=== PATIENT | male | born 2000 | race Caucasian/White ===

== ENCOUNTER 2018-08-23 06:38 | Emergency (ER) | payer SELFPAY ==
[2018-08-23 06:43] VITALS: BP 110/62; PULSE 79; RESP 16; TEMP 36.9; O2SAT 100
--- NOTE | 2018-08-23 07:00 | ED.GENADUL_ITS ---
Discharge Plan Disposition Patient Disposition: HOME Condition: Stable Discharge Details Chief Complaint: Nausea/Vomit/Diar Clinical Impression: Vomiting, Sore throat Primary Care Provider: NONE,NONE ED Provider: Sharron Phillips Discharge Instructions Instructions: Pharyngitis (ED), Acute Nausea and Vomiting (ED), Hematemesis (ED ) Additional Instructions: Please return to the emergency department if you develop any new or worsening symptoms or if you become otherwise concerned. It is extremely important that you make an appointment to be seen by your primary care doctor within the next 1 -2 weeks in follow-up for this visit. Stand Alone Forms: Work Release Discharge Data Discharge Date/Time-TO BE ENTERED AT DEPARTURE: 08/23/18 11:14 Medical Decision Making <Fabricio Alvarez MD - Last Filed: 08/23/18 07:27> 18-year-old male presents from home with the abrupt onset this morning of nausea and vomiting. He does describe some bloody tinged emesis which is likely due to forceful retching. IV placed, labs obtained, patient given antiemetic and fluids. Patient's presentation is most consistent with a gastroenteritis. As he presented just prior to change of shift, patient will be signed out to Dr. Sharron Phillips pending reevaluation and review of his diagnostic studies. <Sharron Phillips MD - Last Filed: 08/31/18 09:25> I took over care of Duc Scott from Dr. Alvarez at time of shift change with labs, reassessment pending. Labs okay, nondiagnostic. Patient reporting to me that after vomiting his throat began to feel sore, and he currently feels like something is stuck in his throat that is making swallowing difficult. As he is telling me this he is lying supine. Handling secretions without issue. Exam the oropharynx is normal without erythema, edema. Full range of motion of neck , painless. Given sore throat with normal exam and Pt feeling quite anxious that something is stuck, plan for soft tissue neck. Doubt epiglottitis, abscess, FB. Exam/hx not c/w impending airway compromise. Neck x-ray okay. Patient reports that he is feeling better at this time with no further FB sensation, reports sensation went away gradually on its own. Plan for p.o. challenge. Patient has not vomited since I took over care. Suspect symptoms secondary to gastritis with forceful vomiting. Lengthy discussion with patient regarding return to emergency department precautions and importance of outpatient follow-up with his PCP. Rx zofran. Patient is placed on care management list to establish PCP. He is amenable to the plan. Imaging Data Radiologic Study: Attestation: I personally reviewed and interpreted this imaging study as follows: Radiologist's impression: NECK: Two views. No priors. The airway appears grossly unremarkable. No prevertebral soft tissue swelling is seen. The epiglottis has a normal appearance. No radiopaque foreign bodies are seen in the airway. The cervical spine appears grossly unremarkable. No radiopaque foreign bodies are seen in the soft tissues. IMPRESSION: Negative examination. Lab Data Lab results reviewed: Yes I reviewed the patient's lab results. 08/23/18 08:20 Pharynx Streptococcus Screen ([facility]) - Pending Laboratory Tests Range/Units 08/23/18 08/23/18 07:00 07:00 WBC (4.4-10.8) k/cumm 7.93 RBC (4.50-6.00) m/cumm 5.21 Hgb (13.5-17.5) g/dL 16.0 Hct (40.0-50.0) % 43.9 MCV (80-95) fL 84.3 MCH (27.0-33.0) pg 30.7 MCHC (32.0-36.0) g/dL 36.4 H RDW (11.8-14.1) % 12.7 Plt Count (130-400) x1000/uL 275 MPV (8.0-11.0) fL 10.6 Immature Gran % 0.1 Neutrophils % 73.8 Lymphocytes % 16.6 Monocytes % 7.4 Eosinophils % 1.8 Basophils % 0.3 Absolute Neutrophils (1.2-6.7) k/cumm 5.85 Absolute Lymphocytes (1.2-3.4) k/cumm 1.32 Absolute Monocytes (0.11-0.7) k/cumm 0.59 Absolute Eosinophils (0.0-0.7) k/cumm 0.14 Absolute Basophils (0.0-0.2) k/cumm 0.02 Sodium (136-145) mmol/L 140 Potassium (3.5-5.1) mmol/L 3.6 Chloride (98-107) mmol/L 102 Carbon Dioxide (21.0-32.0) mmol/L 29.2 Anion Gap (3-11) mmol/L 8.8 BUN (7-18) mg/dL 11 Creatinine (0.70-1.30) mg/dL 0.86 Estimated GFR/1.73 m2 (mL/min/1.73m2) >= 60.00 Glucose (70-100) mg/dL 107 H Calcium (8.5-10.1) mg/dL 8.8 Total Bilirubin (0.2-1.0) mg/dL 0.4 AST (15-37) U/L 25 ALT (12-78) U/L 29 Alkaline Phosphatase (46-116) U/L 77 Total Protein (6.4-8.2) g/dL 7.4 Albumin (3.4-5.0) g/dL 4.4 HPI <Fabricio Alvarez MD - Last Filed: 08/23/18 07:27> General Mode of arrival: ambulatory . Date/Time Provider Initiated Documentation: 08/23/18 06:42 . Limitations to Documentation: no limitations . Information obtained by: patient . History of Present Illness 18 year old M presents to the emergency department with the chief complaint of Nausea and vomiting, described as moderate, and is localized to the abdomen. Patient reports no radiation. Patient started experiencing this hour(s) and it has been intermittent. No relieving factors improve symptom(s ), No exacerbating factors reported . HPI Narrative: 18-year-old male states that he awoke early this morning with nausea and had a few episodes of nonbilious emesis that progressed to some slightly blood-tinged emesis. He does not have any known sick contacts or suspicious food ingestions. He states he has not had a fever. He does not have any abdominal pain. Related Data Allergies Allergy/AdvReac Type Severity Reaction Status Date / Time amoxicillin [Amoxicillin] Allergy Mild RASH Unverified 08/23/18 06:49 Penicillins Allergy Unverified 08/23/18 06:49 General Stated Complaint: Nausea/Vomit/Diar ISABELLA: 3 Review of Systems <Fabricio Alvarez MD - Last Filed: 08/23/18 07:27> Review of Systems 8 systems reviewed and otherwise neg Exam <Fabricio Alvarez MD - Last Filed: 08/23/18 07:27> Narrative Exam Narrative: 6 systems reviewed and otherwise negative Course <Fabricio Alvarez MD - Last Filed: 08/23/18 07:27> Vital Signs Temperature 36.9 C 08/23/18 06:43 Pulse 79 08/23/18 06:43 Respiratory Rate 16 08/23/18 06:43 Blood Pressure 110/62 08/23/18 06:43 Pulse Oximetry 100 08/23/18 06:43 Temperature 36.9 C 08/23/18 06:43 Temperature Source Temporal Artery Scan 08/23/18 06:43 Pulse 79 08/23/18 06:43 Respiratory Rate 16 08/23/18 06:43 Respiratory Effort Non-Labored 08/23/18 06:48 Blood Pressure 110/62 08/23/18 06:43 Blood Pressure Position Sitting 08/23/18 06:43 Pulse Oximetry 100 08/23/18 06:43 Oxygen Delivery Method Room Air 08/23/18 06:43 Oxygen Flow Rate 0 08/23/18 06:43 Pain Level 4 08/23/18 06:43
[2018-08-23] MEDS: Lactated Ringers 1,000 ML 1000 ML IV ×2 (07:07→07:36)
[2018-08-23] MEDS: Ondansetron 4 MG/2 ML VIAL IVP (07:07)
[2018-08-23 07:40] VITALS: BP 114/65; PULSE 66; RESP 15; O2SAT 97
[2018-08-23 07:55] LABS: Abs Immature Grans 0.01 k/cumm (0.0-0.09); Absolute Basophil Count 0.02 k/cumm (0.0-0.2); Absolute Eosinophil Count 0.14 k/cumm (0.0-0.7); Absolute Lymphocyte Count 1.32 k/cumm (1.2-3.4); Absolute Monocyte Count 0.59 k/cumm (0.11-0.7); Absolute Neutrophil Count 5.85 k/cumm (1.2-6.7); Basophils % 0.3; Eosinophils % 1.8; HCT 43.9 % (40.0-50.0); Immature Grans % 0.1; Lymphocytes % 16.6; Mean Corp. HGB Concentration 36.4 g/dL (32.0-36.0); Mean Corpuscular Hemoglobin 30.7 pg (27.0-33.0); Mean Corpuscular Volume 84.3 fL (80-95); Mean Platelet Volume 10.6 fL (8.0-11.0); Monocytes % 7.4; Neutrophils % 73.8; Platelet Count 275 x1000/uL (130-400); RBC 5.21 m/cumm (4.50-6.00); RBC Distribution Width 12.7 % (11.8-14.1); White Blood Cell Count 7.93 k/cumm (4.4-10.8)
[2018-08-23 08:07] LABS: ALT 29 U/L (12-78); AST 25 U/L (15-37); Albumin 4.4 g/dL (3.4-5.0); Alkaline Phosphatase 77 U/L (46-116); Anion Gap 8.8 mmol/L (3-11); BUN 11 mg/dL (7-18); Bilirubin, Total 0.4 mg/dL (0.2-1.0); CO2 29.2 mmol/L (21.0-32.0); CREATININE 0.86 mg/dL (0.70-1.30); Calcium 8.8 mg/dL (8.5-10.1); Chloride 102 mmol/L (98-107); Glucose 107 mg/dL (70-100); Potassium 3.6 mmol/L (3.5-5.1); Sodium 140 mmol/L (136-145); Total Protein 7.4 g/dL (6.4-8.2)
--- NOTE | 2018-08-23 08:35 | DI.RAD_ITS ---
SYMPTOMS/DIAGNOSIS: SORE THROAT, FEELS SOMETHING STUCK IN THROAT NECK: Two views. No priors. The airway appears grossly unremarkable. No prevertebral soft tissue swelling is seen. The epiglottis has a normal appearance. No radiopaque foreign bodies are seen in the airway. The cervical spine appears grossly unremarkable. No radiopaque foreign bodies are seen in the soft tissues. IMPRESSION: Negative examination.
[2018-08-23 08:49] VITALS: BP 106/53; PULSE 61; RESP 16; TEMP 37; O2SAT 99
[2018-08-23 10:04] VITALS: BP 104/47; PULSE 61; RESP 15; TEMP 37; O2SAT 98
[2018-08-23 10:55] VITALS: BP 104/47; PULSE 61; RESP 15; TEMP 37; O2SAT 98
--- NOTE | 2018-08-24 12:26 | PDOC.ERCMPRO ---
Care Management Progress Note 08/24-Dr. Denny Phillips requested PCP (Duc used to see [facility], [facility] adult provider, Dr. 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 Referral faxed to [facility].
--- NOTE | 2018-08-24 12:28 | CMPROGNOTE_ITS ---
Care Management Progress Note 08/24-Dr. Denny Phillips requested PCP (Duc used to see [facility], 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 Referral faxed to [facility].
== END 2018-08-23 11:14 | disposition home or self-care (01) ==
PROVIDERS: Emergency Medicine; Emergency Provider Student in an Organized Health Care Education/Training Program
DX: R11.2 Nausea with vomiting, unspecified (principal); J02.9 Acute pharyngitis, unspecified; R09.89 Other specified symptoms and signs involving the circulatory and respiratory systems
CPT/HCPCS: 36415; 80053; 87880; 96361; 96365; 96375; 99284; 70360; 85025; 87081; 99281; J2405

== ENCOUNTER 2018-09-20 05:05 | Emergency (ER) | payer SELFPAY ==
[2018-09-20 05:12] VITALS: BP 144/89; PULSE 82; RESP 20; TEMP 36.7; O2SAT 98
--- NOTE | 2018-09-20 05:14 | W.ED.GENAD ---
Discharge Plan Disposition Patient Disposition: HOME Condition: Stable Discharge Details Chief Complaint: Nk/Back Pain Clinical Impression: Cervical strain Primary Care Provider: None,None ED Provider: Gregory Hernandez Home Meds and New Rx's Prescriptions: New cyclobenzaprine 10 mg tablet 10 mg PO TID PRN (Reason: muscle spasm) Qty: 30 RF: 0 Discharge Instructions Instructions: Cervical Strain (ED) Additional Instructions: you can take 1000mg tylenol and 600mg ibuprofen every 6 hours for pain as needed for pain do not drink alcohol or drive if you take the cyclobenzaprine if you have fevers, difficulty breathing or persistent vomit return to the emergency department Medical Decision Making 18 yo male who denies chronic medical problems comes in with left sided neck pain for a month. No fevers, vomit, or chest pain/pressure. HE has pain over the left lateral neck diffusely with no midline stepoffs. He does state he fell landing hitting the back of his head without loc about a month ago and is not sure if this is when his pain started or if he strained it lifting at work. NO numbness or focal deficits of motor or sensation on exam and no fevers and denies ivdu so doubt sea or cauda equina and do not feel emergent mri indicated. 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 Will obtian imaging to eval for fx given his fall. ct shows possible old c 7 fx, has no pain in this area so unlikely cause of his pain. 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 Date/Time Provider Initiated Documentation: 09/20/18 05:13. Limitations to Documentation: no limitations. Information obtained by: patient. History of Present Illness 18 year old M presents to the emergency department with the chief complaint of neck pain, described as moderate, with intensity rated at 6. Quality is described as aching, and is localized to the neck. Patient reports no radiation. Patient started experiencing this week(s) (4) and it has been constant. No relieving factors improve symptom(s), No exacerbating factors reported . Patient notes no other symptoms.. Patient did receive the following treatments prior to arrival, other (tylenol) Related Data Home Medications Medication Instructions Recorded Confirmed cyclobenzaprine 10 mg PO TID PRN #30 tab 09/20/18 Previous Rx's Medication Instructions Recorded cyclobenzaprine 10 mg PO TID PRN #30 tab 09/20/18 Allergies Allergy/AdvReac Type Severity Reaction Status Date / Time amoxicillin [Amoxicillin] Allergy Mild RASH Unverified 09/20/18 05:14 Penicillins Allergy Unverified 09/20/18 05:14 General Stated Complaint: Nk/Back Pain ISABELLA: 4 Review of Systems Review of Systems All systems reviewed & are unremarkable except as noted in HPI and below Constitutional Denies chills, Denies fever(s) and Denies weakness Cardiovascular Denies chest pain and Denies dyspnea Respiratory Denies dyspnea Gastrointestinal Denies abdominal pain, Denies nausea and Denies vomiting Musculoskeletal Denies joint swelling Integumentary/Breasts Denies rash Neurologic Denies weakness PFSH Family History Mother Mental disorder Father Substance abuse Alcohol abuse Mental disorder Cerebrovascular accident Asthma Other No problems noted. Medical History ADHD (attention deficit hyperactivity disorder) Social History Smoking/Tobacco Use Status: Never Surgical History Circumcision Exam Const General: no acute distress Orientation: alert [facility] Head: normal to inspection Ears: external ears normal General nose exam: external nose normal Mouth: moist mucous membranes Eyes General: appearance normal, both eyes and all related structures Neck Neck: normal visual inspection Resp Effort & Inspection: normal respiratory effort and able to speak in complete sentences Cardio Rate: regular rate Skin General skin exam: no rashes or lesions noted Neuro General: alert and oriented x3 Extrem General: normal to inspection Psych Mental Status: mental status grossly normal Course Vital Signs Temperature 36.7 C 09/20/18 05:12 Pulse 82 09/20/18 05:12 Respiratory Rate 20 11/26/18 05:12 Blood Pressure 144/89 H 09/20/18 05:12 Pulse Oximetry 98 09/20/18 05:12 Temperature 36.7 C 09/20/18 05:12 Temperature Source Temporal Artery Scan 09/20/18 05:12 Pulse 82 09/20/18 05:12 Respiratory Rate 20 09/20/18 05:12 Respiratory Effort Non-Labored 09/20/18 05:12 Blood Pressure 144/89 H 09/20/18 05:12 Pulse Oximetry 98 09/20/18 05:12 Oxygen Delivery Method Room Air 09/20/18 05:12 Oxygen Flow Rate 0 09/20/18 05:12 Pain Level 6 09/20/18 05:12
--- NOTE | 2018-09-20 05:28 | ED.GENADUL_ITS ---
Discharge Plan Disposition Patient Disposition: HOME Condition: Stable Discharge Details Chief Complaint: Nk/Back Pain Clinical Impression: Cervical strain Primary Care Provider: None,None ED Provider: Gregory Hernandez Home Meds and New Rx's Prescriptions: New cyclobenzaprine 10 mg tablet 10 mg PO TID PRN (Reason: muscle spasm) Qty: 30 RF: 0 Discharge Instructions Instructions: Cervical Strain (ED) Additional Instructions: you can take 1000mg tylenol and 600mg ibuprofen every 6 hours for pain as needed for pain do not drink alcohol or drive if you take the cyclobenzaprine if you have fevers, difficulty breathing or persistent vomit return to the emergency department Medical Decision Making 18 yo male who denies chronic medical problems comes in with left sided neck pain for a month. No fevers, vomit, or chest pain/pressure. HE has pain over the left lateral neck diffusely with no midline stepoffs. He does state he fell landing hitting the back of his head without loc about a month ago and is not sure if this is when his pain started or if he strained it lifting at work. NO numbness or focal deficits of motor or sensation on exam and no fevers and denies ivdu so doubt sea or cauda equina and do not feel emergent mri indicated. 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 Will obtian imaging to eval for fx given his fall. ct shows possible old c 7 fx, has no pain in this area so unlikely cause of his pain. 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 Date/Time Provider Initiated Documentation: 09/20/18 05:13 . Limitations to Documentation: no limitations . Information obtained by: patient . History of Present Illness 18 year old M presents to the emergency department with the chief complaint of neck pain, described as moderate, with intensity rated at 6. Quality is described as aching, and is localized to the neck. Patient reports no radiation. Patient started experiencing this week(s) (4) and it has been constant. No relieving factors improve symptom(s), No exacerbating factors reported . Patient notes no other symptoms.. Patient did receive the following treatments prior to arrival, other (tylenol) Related Data Home Medications Medication Instructions Recorded Confirmed cyclobenzaprine 10 mg PO TID PRN #30 tab 09/20/18 Previous Rx's Medication Instructions Recorded cyclobenzaprine 10 mg PO TID PRN #30 tab 09/20/18 Allergies Allergy/AdvReac Type Severity Reaction Status Date / Time amoxicillin [Amoxicillin] Allergy Mild RASH Unverified 09/20/18 05:14 Penicillins Allergy Unverified 09/20/18 05:14 General Stated Complaint: Nk/Back Pain ISABELLA: 4 Review of Systems Review of Systems All systems reviewed & are unremarkable except as noted in HPI and below Constitutional Denies chills, Denies fever(s) and Denies weakness Cardiovascular Denies chest pain and Denies dyspnea Respiratory Denies dyspnea Gastrointestinal Denies abdominal pain, Denies nausea and Denies vomiting Musculoskeletal Denies joint swelling Integumentary/Breasts Denies rash Neurologic Denies weakness PFSH Family History Mother Mental disorder Father Substance abuse Alcohol abuse Mental disorder Cerebrovascular accident Asthma Other No problems noted. Medical History ADHD (attention deficit hyperactivity disorder) Social History Smoking/Tobacco Use Status: Never Surgical History Circumcision Exam Const General: no acute distress Orientation: alert [facility] Head: normal to inspection Ears: external ears normal General nose exam: external nose normal Mouth: moist mucous membranes Eyes General: appearance normal, both eyes and all related structures Neck Neck: normal visual inspection Resp Effort & Inspection: normal respiratory effort and able to speak in complete sentences Cardio Rate: regular rate Skin General skin exam: no rashes or lesions noted Neuro General: alert and oriented x3 Extrem General: normal to inspection Psych Mental Status: mental status grossly normal Course Vital Signs Temperature 36.7 C 09/20/18 05:12 Pulse 82 09/20/18 05:12 Respiratory Rate 20 11/26/18 05:12 Blood Pressure 144/89 H 09/20/18 05:12 Pulse Oximetry 98 09/20/18 05:12 Temperature 36.7 C 09/20/18 05:12 Temperature Source Temporal Artery Scan 09/20/18 05:12 Pulse 82 09/20/18 05:12 Respiratory Rate 20 09/20/18 05:12 Respiratory Effort Non-Labored 09/20/18 05:12 Blood Pressure 144/89 H 09/20/18 05:12 Pulse Oximetry 98 09/20/18 05:12 Oxygen Delivery Method Room Air 09/20/18 05:12 Oxygen Flow Rate 0 09/20/18 05:12 Pain Level 6 09/20/18 05:12
--- NOTE | 2018-09-20 06:01 | DI.VRAD_ITS ---
EXAM: CT Cervical Spine Without Intravenous Contrast EXAM DATE/TIME: 09/20/2018 5:23 AM CLINICAL HISTORY: 18 years old, male; Pain and injury or trauma; Fall; Late effect from previous injury; Blunt trauma; Neck pain; Injury details: Fell one month ago TECHNIQUE: Axial computed tomography images of the cervical spine without intravenous contrast. All CT scans at this facility use at least one of these dose optimization techniques: automated exposure control; mA and/or kV adjustment per patient size (includes targeted exams where dose is matched to clinical indication); or iterative reconstruction. Coronal reformatted images were created and reviewed. COMPARISON: CR XR soft tissue neck 08/23/2018 8:29 AM FINDINGS: Vertebrae: No acute fracture. Mild lordosis straightening. 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 No neural foraminal narrowing. Soft tissues: Unremarkable. Lungs: Lung apices are normal. 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 Ordering:ANULE BOLANOS MD
[2018-09-20 06:06] VITALS: BP 144/89; PULSE 82; RESP 20; TEMP 36.7; O2SAT 98
[2018-09-20] MEDS: Ibuprofen 600 MG TAB PO (06:06)
[2018-09-20] MEDS: Cyclobenzaprine 10 MG TAB PO (06:06)
--- NOTE | 2018-09-20 06:19 | DI.CT_ITS ---
SYMPTOM/DIAGNOSIS: PAIN S/P FALL A MONTH AGO CT CERVICAL SPINE: There is no evidence of fracture. The alignment appears normal. There is no disc space narrowing. No pneumothorax is seen at the lung apices. There is a small bony density seen posterior to the C-7 vertebral body which could represent an old fracture vs unfused apophysis. IMPRESSION: No acute abnormality
== END 2018-09-20 06:13 | disposition home or self-care (01) ==
LOC: ER 06:16
PROVIDERS: Emergency Provider Emergency Medicine
DX: S16.1XXA Strain of muscle, fascia and tendon at neck level, initial encounter (principal); X50.9XXA Other and unspecified overexertion or strenuous movements or postures, initial encounter
CPT/HCPCS: 99284; 72125

== ENCOUNTER 2018-10-05 19:00 | Emergency (ER) | payer SELFPAY ==
[2018-10-05 19:04] VITALS: BP 140/78; PULSE 94; RESP 18; TEMP 37.1; O2SAT 100
--- NOTE | 2018-10-05 19:16 | W.ED.GENAD ---
Discharge Plan Disposition Patient Disposition: HOME Condition: Improving Discharge Details Chief Complaint: Nk/Back Pain Clinical Impression: Cervical paraspinal muscle spasm Primary Care Provider: None,None ED Provider: Fabricio Alvarez Home Meds and New Rx's Prescriptions: New diazepam [Valium] 5 mg tablet 5 mg PO Q8H PRN (Reason: pain and spasm) Qty: 3 RF: 0 Continue ibuprofen 200 mg Tablet 400 mg PO QID PRNRF: 0 Discontinued cyclobenzaprine 10 mg tablet 10 mg PO TID PRN (Reason: muscle spasm) Qty: 30 RF: 0 Discharge Instructions Instructions: Muscle Spasm (ED), Tension Headache (ED) Additional Instructions: Home to rest. May continue warm, moist heat and massage to aid in reducing discomfort. Continue tiotropium if needed. Next dose of ibuprofen in 6 hours. May use Valium, sparingly, as needed for severe pain and spasm and also to help with sleep. We will ask care management to help arrange a primary care physician for you. Return if you develop numbness, tingling, weakness of the upper extremities or any other acute concerns. Stand Alone Forms: Work Release Medical Decision Making 18-year-old male presents with recurrent episodes of neck spasm, pain, and complaints that it progresses to migraine headaches. He states is been intermittent over one years time. Was seen in the emerge department in August he had a CT scan of the cervical spine that was unremarkable. 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 He has no motor weakness, numbness or tingling. He states that the pain radiates to the head and often provokes a migraine which she does not have denied. Is been somewhat improved with Tylenol at home. His vital signs are reassuring and his exam is consistent with acute muscular spasm. Most consistent with tension type headache. Patient given ketorolac IM as well as Valium p.o. He will be prescribed an additional 3 value to be used as needed only at home. I will prescribe him physical therapy will ask care management to help arrange an outpatient establishment of primary care HPI General Mode of arrival: ambulatory. Date/Time Provider Initiated Documentation: 10/05/18 19:04. Limitations to Documentation: no limitations. Information obtained by: patient. History of Present Illness 18 year old M presents to the emergency department with the chief complaint of Neck spasm and headaches intermittently over 1 years time, described as moderate and similar to prior episodes, Quality is described as aching, and is localized to the neck and left. Patient reports no radiation. Patient started experiencing this day(s) and it has been constant. other things that improve symptom(s), (Muscle massage) Related Data Home Medications Medication Instructions Recorded Confirmed diazepam [Valium] 5 mg PO Q8H PRN #3 tab 10/05/18 ibuprofen 400 mg PO QID PRN 10/05/18 10/05/18 Previous Rx's Medication Instructions Recorded diazepam [Valium] 5 mg PO Q8H PRN #3 tab 10/05/18 Allergies Allergy/AdvReac Type Severity Reaction Status Date / Time amoxicillin [Amoxicillin] Allergy Mild RASH Unverified 09/20/18 05:14 Penicillins Allergy Unverified 09/20/18 05:14 General Stated Complaint: Nk/Back Pain ISABELLA: 4 Review of Systems Review of Systems 6 systems reviewed and otherwise negative PFSH ADHD (attention deficit hyperactivity disorder) Family History Mother Mental disorder Father Substance abuse Alcohol abuse Mental disorder Stroke Asthma Other No problems noted. Medical History ADHD (attention deficit hyperactivity disorder) Social History Smoking/Tobacco Use Status: Never Surgical History Circumcision Social History Smoking/Tobacco Use Status: Never Exam Narrative Exam Narrative: GEN: awake, alert, oriented 3. Pleasant, well groomed, interactive. HEAD: Normocephalic, atraumatic ENT: Mucous membranes moist, oropharynx unremarkable, External ear exam unremarkable EYES: PERRL, EOMI NECK: Full ROM, no JOJO, no menigismus. Spasm and tenderness present in the paraspinous musculature left greater than right. No midline step-off, tenderness or deformity CHEST/RESP: Nontender, clear to auscultation bilateral, no wheeze/rhonchi/rales CARDIOVASCULAR: RRR, no murmur, rub robert. 2+ Rad pulse bilateral ABDOMEN: Soft, nontender, no mass. +Bowel sounds EXT: Full ROM, no edema, no rash Neuro: Grossly normal neurologic exam, conversant, interactive. Psych: Speech fluent, thoughts congruent, affect normal Course Vital Signs Temperature 37.1 C 10/05/18 19:04 Pulse 94 H 10/05/18 19:04 Respiratory Rate 18 10/05/18 19:04 Blood Pressure 140/78 10/05/18 19:04 Pulse Oximetry 100 10/05/18 19:04 Temperature 37.1 C 10/05/18 19:04 Temperature Source Skin 10/05/18 19:04 Pulse 94 H 10/05/18 19:04 Respiratory Rate 18 10/05/18 19:04 Respiratory Effort Non-Labored 10/05/18 19:06 Blood Pressure 140/78 10/05/18 19:04 Blood Pressure Position Sitting 10/05/18 19:04 Pulse Oximetry 100 10/05/18 19:04 Oxygen Delivery Method Room Air 10/05/18 19:04 Oxygen Flow Rate 0 10/05/18 19:04 Pain Level 8 10/05/18 19:04
--- NOTE | 2018-10-05 19:19 | ED.GENADUL_ITS ---
Discharge Plan Disposition Patient Disposition: HOME Condition: Improving Discharge Details Chief Complaint: Nk/Back Pain Clinical Impression: Cervical paraspinal muscle spasm Primary Care Provider: None,None ED Provider: Fabricio Alvarez Home Meds and New Rx's Prescriptions: New diazepam [Valium] 5 mg tablet 5 mg PO Q8H PRN (Reason: pain and spasm) Qty: 3 RF: 0 Continue ibuprofen 200 mg Tablet 400 mg PO QID PRNRF: 0 Discontinued cyclobenzaprine 10 mg tablet 10 mg PO TID PRN (Reason: muscle spasm) Qty: 30 RF: 0 Discharge Instructions Instructions: Muscle Spasm (ED), Tension Headache (ED) Additional Instructions: Home to rest. May continue warm, moist heat and massage to aid in reducing disc omfort. Continue tiotropium if needed. Next dose of ibuprofen in 6 hours. May use Valium, sparingly, as needed for severe pain and spasm and also to help with sleep. We will ask care management to help arrange a primary care physician for you. Return if you develop numbness, tingling, weakness of the upper extremities or any other acute concerns. Stand Alone Forms: Work Release Medical Decision Making 18-year-old male presents with recurrent episodes of neck spasm, pain, and complaints that it progresses to migraine headaches. He states is been intermittent over one years time. Was seen in the emerge department in August he had a CT scan of the cervical spine that was unremarkable. 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 He has no motor weakness, numbness or tingling. He states that the pain radiates to the head and often provokes a migraine which she does not have denied. Is been somewhat improved with Tylenol at home. His vital signs are reassuring and his exam is consistent with acute muscular spasm. Most consistent with tension type headache. Patient given ketorolac IM as well as Valium p.o. He will be prescribed an additional 3 value to be used as needed only at home. I will prescribe him physical therapy will ask care management to help arrange an outpatient establishment of primary care HPI General Mode of arrival: ambulatory . Date/Time Provider Initiated Documentation: 10/05/18 19:04 . Limitations to Documentation: no limitations . Information obtained by: patient . History of Present Illness 18 year old M presents to the emergency department with the chief complaint of Neck spasm and headaches intermittently over 1 years time, described as moderate and similar to prior episodes, Quality is described as aching, and is localized to the neck and left. Patient reports no radiation. Patient started experiencing this day(s) and it has been constant. other things that improve symptom(s), (Muscle massage) Related Data Home Medications Medication Instructions Recorded Confirmed diazepam [Valium] 5 mg PO Q8H PRN #3 tab 10/05/18 ibuprofen 400 mg PO QID PRN 10/05/18 10/05/18 Previous Rx's Medication Instructions Recorded diazepam [Valium] 5 mg PO Q8H PRN #3 tab 10/05/18 Allergies Allergy/AdvReac Type Severity Reaction Status Date / Time amoxicillin [Amoxicillin] Allergy Mild RASH Unverified 09/20/18 05:14 Penicillins Allergy Unverified 09/20/18 05:14 General Stated Complaint: Nk/Back Pain ISABELLA: 4 Review of Systems Review of Systems 6 systems reviewed and otherwise negative PFSH ADHD (attention deficit hyperactivity disorder) Family History Mother Mental disorder Father Substance abuse Alcohol abuse Mental disorder Stroke Asthma Other No problems noted. Medical History ADHD (attention deficit hyperactivity disorder) Social History Smoking/Tobacco Use Status: Never Surgical History Circumcision Social History Smoking/Tobacco Use Status: Never Exam Narrative Exam Narrative: GEN: awake, alert, oriented 3. Pleasant, well groomed, interactive. HEAD: Normocephalic, atraumatic ENT: Mucous membranes moist, oropharynx unremarkable, External ear exam unremarkable EYES: PERRL, EOMI NECK: Full ROM, no JOJO, no menigismus. Spasm and tenderness present in the paraspinous musculature left greater than right. No midline step-off, tenderness or deformity CHEST/RESP: Nontender, clear to auscultation bilateral, no wheeze/rhonchi/rales CARDIOVASCULAR: RRR, no murmur, rub robert. 2+ Rad pulse bilateral ABDOMEN: Soft, nontender, no mass. +Bowel sounds EXT: Full ROM, no edema, no rash Neuro: Grossly normal neurologic exam, conversant, interactive. Psych: Speech fluent, thoughts congruent, affect normal Course Vital Signs Temperature 37.1 C 10/05/18 19:04 Pulse 94 H 10/05/18 19:04 Respiratory Rate 18 10/05/18 19:04 Blood Pressure 140/78 10/05/18 19:04 Pulse Oximetry 100 10/05/18 19:04 Temperature 37.1 C 10/05/18 19:04 Temperature Source Skin 10/05/18 19:04 Pulse 94 H 10/05/18 19:04 Respiratory Rate 18 10/05/18 19:04 Respiratory Effort Non-Labored 10/05/18 19:06 Blood Pressure 140/78 10/05/18 19:04 Blood Pressure Position Sitting 10/05/18 19:04 Pulse Oximetry 100 10/05/18 19:04 Oxygen Delivery Method Room Air 10/05/18 19:04 Oxygen Flow Rate 0 10/05/18 19:04 Pain Level 8 10/05/18 19:04
[2018-10-05] MEDS: Ketorolac 60 MG/2 ML VIAL IM (19:21)
[2018-10-05] MEDS: Diazepam 5 MG TAB PO (19:21)
== END 2018-10-05 19:35 | disposition home or self-care (01) ==
LOC: ER 19:41
PROVIDERS: Emergency Provider Emergency Medicine
DX: M62.838 Other muscle spasm (principal); R51 Headache
CPT/HCPCS: 96372; 99284; J1885

== ENCOUNTER 2019-03-25 23:24 | Emergency (ER) | payer SELFPAY ==
[2019-03-25 23:28] VITALS: BP 129/69; PULSE 90; RESP 17; TEMP 37.2; O2SAT 99
--- NOTE | 2019-03-25 23:37 | DI.RAD_ITS ---
SYMPTOM/DIAGNOSIS: STEPPED ON NAIL RIGHT FOOT: Three views were obtained. No fracture or foreign body identified.
--- NOTE | 2019-03-25 23:42 | W.ED.GENAD ---
Discharge Plan Disposition Patient Disposition: HOME Condition: Good Discharge Details Chief Complaint: Orthopedic Clinical Impression: Puncture wound of right foot Primary Care Provider: None,None ED Provider: Allan Muhammad Meds and New Rx's Prescriptions: New levofloxacin [Levaquin] 500 mg tablet 500 mg PO DAILY Qty: 4 RF: 0 ibuprofen 600 mg tablet 600 mg PO QID PRN (Reason: pain) Qty: 20 RF: 0 Discharge Instructions Instructions: Puncture Wound (ED) Additional Instructions: Soak the foot in warm Epson salt solution a few times a day each day over the weekend. Keep the foot elevated. Take antibiotic nightly. Ibuprofen as needed for pain. Return to ED Thursday for wound check. Return sooner if any increased pain, drainage, erythema, fever Stand Alone Forms: Work Release Referrals: [facility] [Provider Group] Medical Decision Making Patient is given Toradol for pain. His tetanus is updated. Will soak his foot in Betadine and saline. We will get an x-ray. We will plan on antibiotics given that the nail went through the sole of his boot. X-rays are negative for anything acute. No fracture or foreign body. Patient will be placed on Levaquin for 5 days. Patient to return to emergency department Thursday for wound check. He does not have primary care currently. 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 We will have him do Epson salt soaks a few times a day over the weekend. Keep his foot elevated. Return sooner to ED if any increased pain, redness, drainage, fever HPI General Mode of arrival: ambulatory. Date/Time Provider Initiated Documentation: 03/25/19 23:32. Limitations to Documentation: no limitations. Information obtained by: patient. HPI Narrative: Patient presents to ED after stepping on a nail around 5 PM. Nail went through the sole of his boot into the bottom of his right foot. He has had increasing pain and swelling since then. He did soak his foot in Epsom salts. He has not taken anything for pain. He presents because of worsening pain and swelling. Related Data Home Medications Medication Instructions Recorded Confirmed ibuprofen 600 mg PO QID PRN #20 tab 03/26/19 levofloxacin [Levaquin] 500 mg PO DAILY #4 tab 03/26/19 Previous Rx's Medication Instructions Recorded ibuprofen 600 mg PO QID PRN #20 tab 03/26/19 levofloxacin [Levaquin] 500 mg PO DAILY #4 tab 03/26/19 Allergies Allergy/AdvReac Type Severity Reaction Status Date / Time amoxicillin [Amoxicillin] Allergy Mild RASH Unverified 03/25/19 23:31 Penicillins Allergy Unverified 03/25/19 23:31 General Stated Complaint: Orthopedic ISABELLA: 4 Review of Systems Constitutional Denies fever(s) and Denies weakness Musculoskeletal Denies numbness Comments: foot pain Integumentary/Breasts Reports wounds Neurologic Denies focal weakness, Denies numbness and Denies weakness [facility] Medical History ADHD (attention deficit hyperactivity disorder) Surgical History Circumcision Social History Smoking/Tobacco Use Status: Never Alcohol Intake: never Drug use: Daily Substance use type: marijuana Do you feel safe at home: Yes Do you feel safe in your relationship?: Yes Exam Narrative Exam Narrative: Patient is afebrile. Vital signs are normal. He looks well. Right foot has a puncture wound in the ball of the foot at the base of the fourth toe. He has tenderness in this area. He has pain with range of motion of the third fourth and fifth toe. There is no drainage or erythema. He is neurovascularly intact. Course Vital Signs Temperature 99.0 F 03/25/19 23:28 Pulse 90 03/25/19 23:28 Respiratory Rate 17 03/25/19 23:28 Blood Pressure 129/69 03/25/19 23:28 Pulse Oximetry 99 03/25/19 23:28 Temperature 99.0 F 03/25/19 23:28 Temperature Source Skin 03/25/19 23:28 Pulse 90 03/25/19 23:28 Respiratory Rate 17 03/25/19 23:28 Respiratory Effort Non-Labored 03/25/19 23:30 Blood Pressure 129/69 03/25/19 23:28 Blood Pressure Position Sitting 03/25/19 23:28 Pulse Oximetry 99 03/25/19 23:28 Oxygen Delivery Method Room Air 03/25/19 23:28 Oxygen Flow Rate 0 03/25/19 23:28 Pain Level 7 03/25/19 23:28
[2019-03-25] MEDS: Ketorolac 30 MG/ML VIAL IM (23:50)
[2019-03-26] MEDS: levoFLOXacin 500 MG TAB PO (00:22)
--- NOTE | 2019-03-26 00:50 | DI.VRAD_ITS ---
EXAM: XR Right Foot Complete EXAM DATE/TIME: 03/25/2019 11:39 PM CLINICAL HISTORY: 18 years old, male; Pain; Foot; Right; Patient HX: Stepped on nail TECHNIQUE: Imaging protocol: XR Right foot. Views: 3 or more views. COMPARISON: CR RIGHT ANKLE COMPLETE 07/15/2015 5:47 PM FINDINGS: Bones/joints: Typical for age. No evidence of acute fracture. Soft tissues: Unremarkable. IMPRESSION: No acute findings. Dictated and Authenticated by: Will Gaona MD. Ordering:VALARIE Lemus MD
--- NOTE | 2019-03-29 08:57 | PDOC.ERCMPRO ---
Care Management Progress Note 03/29-Dr. 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 Referral faxed to [facility] this am.
--- NOTE | 2019-03-29 08:59 | CMPROGNOTE_ITS ---
Care Management Progress Note 03/29-Dr. 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 Referral faxed to [facility] this am.
== END 2019-03-26 00:30 | disposition home or self-care (01) ==
PROVIDERS: Emergency Provider Emergency Medicine
DX: S91.331A Puncture wound without foreign body, right foot, initial encounter (principal); W45.8XXA Other foreign body or object entering through skin, initial encounter
CPT/HCPCS: 90471; 96372; 99284; 73630; J1885

== ENCOUNTER 2020-05-29 09:25 | Emergency (ER) | payer SELFPAY ==
--- NOTE | 2020-05-29 09:26 | ED.GENADUL_ITS ---
Discharge Plan Disposition Patient Disposition: HOME Condition: Good Discharge Details Chief Complaint: Sorethroat Clinical Impression: URI (upper respiratory infection) Primary Care Provider: None,None ED Provider: Laura Hassan Home Meds and New Rx's Prescriptions: Continued ibuprofen 600 mg tablet 600 mg PO QID PRN (Reason: pain) Qty: 20 RF: 0 Discharge Instructions Instructions: Upper Respiratory Infection (ED) Additional Instructions: Encourage water intake. Tylenol and ibuprofen as needed for discomfort. You need to quarantine until results of your COVID-19 testing. We will contact you with results once these have returned. You are unable to return to work been commuting to these are back. If you develop difficulty breathing, shortness of breath, inability stay hydrated or other new/worsening symptom please seek care urgently once again. Stand Alone Forms: PENDING COVID-19 TESTING, Work Release Discharge Data Discharge Date/Time-TO BE ENTERED AT DEPARTURE: 05/29/20 09:54 Medical Decision Making <Gregory Hernandez MD - Last Filed: 05/29/20 09:51> I had a [id number] encounter with the patient. I evaluated the patient. I discussed case with DEVELOPMENT SYSTEM EFFICIENCY MANAGER/PA and I reviewed DEVELOPMENT SYSTEM EFFICIENCY MANAGER/PA note and agree with note as documented. <YAN Gong - Last Filed: 05/30/20 12:14> Patient is a pleasant 19 year old male presenting today with c/c of scratchy throat, body aches and cough that started at 0300. Reports he vomited last night x 1 after a chip caught in his throat last night which triggered his gag reflex. He denies SOB, CP, furhter abdominal upset. He states that he traveled to [facility] 2 weeks ago for work. Concerned for COVID-19. On exam, patient appears nontoxic. Normal HEENT exam, lungs are clear, normal cardiac exam, no nuchal rigidity. Discussed treatment options with the patient. Discussed testing for COVID. Patient will need results to be able to return to work so we will test today. Advised that he needs to quarantine, discussed activities he should avoid. Patient was given strict return precautions. We will call him with results. Symptoms are most consistent with viral URI even if negative for COVID. We discussed home remedities and OTC medications to help with symptoms management. Advised he f/u with PCP in 1-2 weeks if not improving. Discussed return precuations. All of his questions and concerns. He is in agreement iwth this plan. HPI <Gregroy Hernandez MD - Last Filed: 05/29/20 09:51> General Date/Time Provider Initiated Documentation: 05/29/20 09:26 . Related Data Home Medications Medication Instructions Recorded Confirmed ibuprofen 600 mg PO QID PRN #20 tab 03/26/19 05/29/20 Previous Rx's Medication Instructions Recorded ibuprofen 600 mg PO QID PRN #20 tab 03/26/19 Allergies Allergy/AdvReac Type Severity Reaction Status Date / Time amoxicillin [Amoxicillin] Allergy Mild RASH Unverified 05/29/20 09:34 Penicillins Allergy Unverified 05/29/20 09:34 <YAN Gong - Last Filed: 05/30/20 12:14> General Mode of arrival: ambulatory . Limitations to Documentation: no limitations . Information obtained by: patient and RN notes reviewed . History of Present Illness 19 year old M presents to the emergency department with the chief complaint of scratchy throat, cough, body aches, described as mild, with intensity rated at 3. Quality is described as aching, Patient started experiencing this hour(s) (0300) and it has been constant. No relieving factors improve symptom(s), No exacerbating factors reported . Patient notes cough and nausea/vomiting (vomited x 1 last night after chip was caught in his throat); denies chest pain, diaphoresis, fever/chills, headaches, rash, shortness of breath and syncope. Patient did receive the following treatments prior to arrival, none General ISABELLA: 4 <YAN Gong - Last Filed: 05/30/20 12:14> Constitutional Constitutional: Reports as per HPI, Denies chills, Denies fever(s) and Denies headache(s) Eyes Eyes: Reports as per HPI, Denies eye discharge and Denies irritation ENT Ears, Nose, Mouth, and Throat: Reports as per HPI and Denies headache(s) Cardiovascular Cardiovascular: Reports as per HPI, Denies chest pain and Denies dyspnea Respiratory Respiratory: Reports as per HPI and Denies dyspnea Gastrointestinal Gastrointestinal: Reports as per HPI, Denies abdominal pain, Denies change in bowel habits, Denies nausea and Denies vomiting Integumentary/Breasts Skin/Breast: Reports as per HPI and Denies rash Neurologic Neurologic: Reports as per HPI and Denies headache(s) PFS <Gregory Hernandez MD - Last Filed: 05/29/20 09:51> Medical History (Updated 05/29/20 @ 09:49 by YAN Gong) ADHD (attention deficit hyperactivity disorder) Surgical History Circumcision Family History Mother Mental disorder anxiety/depression Father Substance abuse Alcohol abuse hx of Mental disorder anxiety/depression Stroke Asthma outgrown Other No problems noted. Social History Smoking/Tobacco Use Status: Never Alcohol Intake: never Drug use: Daily Substance use type: marijuana Do you feel safe at home: Yes Do you feel safe in your relationship?: Yes <YAN Gong - Last Filed: 05/30/20 12:14> Const General: cooperative, healthy appearing, comfortable, no acute distress, well developed and well groomed Nutritional Appearance: average body habitus and well nourished Orientation: alert and awake [facility] Head: normal to inspection, normocephalic and atraumatic Ears: hearing grossly normal bilaterally, external ears normal and TM's normal bilaterally General nose exam: external nose normal and nares normal Face and sinus: normal facial exam, sinuses nontender and face symmetric Mouth: oral mucosae normal, lip normal, tongue normal, oropharynx normal and moist mucous membranes Teeth and gingiva: dentition normal Throat: posterior oropharynx normal, tonsils normal and uvula midline Eyes General: appearance normal, both eyes and all related structures Neck Neck: normal visual inspection, full ROM, no lymphadenopathy and no meningeal signs Resp Effort & Inspection: normal respiratory effort, able to speak in complete sentences and no respiratory distress Auscultation: clear to auscultation bilaterally, no rales, no rhonchi and no wheezes Cardio Rate: regular rate Rhythm: regular rhythm Heart Sounds: S1 normal and S2 normal Skin General skin exam: no rashes or lesions noted Neuro General: patient alert and patient awake Cognition: normal cognition Speech: speech normal Gait: normal gait Psych Appearance: grossly normal and well kempt Mental Status: mental status grossly normal Speech and Movement: speech and movement normal
[2020-05-29 09:29] VITALS: BP 113/58; PULSE 81; RESP 16; TEMP 36.7; O2SAT 99
[2020-05-30 22:25] LABS: SARS-CoV-2 RNA Undetected (Undetected)
--- NOTE | 2020-05-31 11:40 | NUR.NOTE ---
called pt cell phone - no answer - no voicemail box Nursing Note:
--- NOTE | 2020-06-02 11:33 | NUR.NOTE ---
Nursing Note: Nursing unable to reach patient. Result for COVID was mailed to patient. Florence Thornton
== END 2020-05-29 09:54 | disposition home or self-care (01) ==
LOC: ER 09:55
PROVIDERS: Emergency Provider Physician Assistant
DX: J06.9 Acute upper respiratory infection, unspecified (principal); R11.2 Nausea with vomiting, unspecified; Z11.59 Encounter for screening for other viral diseases
CPT/HCPCS: 99282; U0003; 99283

== ENCOUNTER 2020-06-03 06:36 | Emergency (ER) | payer SELFPAY ==
[2020-06-03 06:39] VITALS: BP 138/83; PULSE 75; RESP 16; TEMP 36.5; O2SAT 98
--- NOTE | 2020-06-03 06:45 | ED.GENADUL_ITS ---
Discharge Plan Disposition Patient Disposition: HOME Condition: Stable Discharge Details Chief Complaint: Headache Clinical Impression: Sinusitis Primary Care Provider: None,None ED Provider: Gregory Hernandez Home Meds and New Rx's Prescriptions: New doxycycline hyclate 100 mg tablet 100 mg PO BID Qty: 14 RF: 0 No Action ibuprofen 600 mg tablet 600 mg PO QID PRN (Reason: pain) Qty: 20 RF: 0 Discharge Instructions Instructions: Sinusitis (ED) Additional Instructions: you can take 1000mg tylenol and 600mg ibuprofen every 6 hours for pain as needed try using a netti pot. Also take a claritin in the morning and a benadryl before bed may help if you feel more ill, have high fevers or severe worsening pain return to the emergency department follow up with your primary care provider if you aren't improving within a week Medical Decision Making 19 yo male with hx of migraines and adhd comes in with pressure in the maxillary sinuses and reported intermittent mild nose bleeds. Denies fevers, chills, state priya is in the frontal face not the head like he does when he has migraines. He denies any neck pain or stiffness, his throat pain has improved and had negative covid19 test last week. He arrives in no distress with pain to percussion over maxillary sinuses, normal orpharynx, eomi, perrl, no skin swelling or rashes. Suspect sinusitis and given the nose bleeds will tx with abx. 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 Will have him f/u with his pcp if not improving and return precautions given Differential Diagnosis Differential Diagnosis: sinusitis, uri, HPI General Mode of arrival: ambulatory . Date/Time Provider Initiated Documentation: 06/03/20 06:37 . Limitations to Documentation: no limitations . Information obtained by: patient . History of Present Illness 19 year old M presents to the emergency department with the chief complaint of sinus pressure, described as moderate, Patient started experiencing this week(s) (1) and it has been constant. No relieving factors improve symptom(s), No exacerbating factors reported . Patient did receive the following treatments prior to arrival, none Related Data Home Medications Medication Instructions Recorded Confirmed ibuprofen 600 mg PO QID PRN #20 tab 03/26/19 06/03/20 doxycycline hyclate 100 mg PO BID #14 tab 06/03/20 Previous Rx's Medication Instructions Recorded ibuprofen 600 mg PO QID PRN #20 tab 03/26/19 doxycycline hyclate 100 mg PO BID #14 tab 06/03/20 Allergies Allergy/AdvReac Type Severity Reaction Status Date / Time amoxicillin [Amoxicillin] Allergy Mild RASH Unverified 06/03/20 06:42 Penicillins Allergy Unverified 06/03/20 06:42 General Stated Complaint: Headache ISABELLA: 4 Review of Systems All systems reviewed & are unremarkable except as noted in HPI and below Constitutional Constitutional: Denies chills, Denies fever(s) and Denies weakness ENT Ears, Nose, Mouth, and Throat: Denies change in voice Cardiovascular Cardiovascular: Denies chest pain and Denies dyspnea Respiratory Respiratory: Denies cough and Denies dyspnea Gastrointestinal Gastrointestinal: Denies abdominal pain, Denies nausea and Denies vomiting Musculoskeletal Musculoskeletal: Denies joint swelling Integumentary/Breasts Skin/Breast: Denies rash Neurologic Neurologic: Denies weakness [facility] Medical History (Updated 06/03/20 @ 06:48 by Gregory Hernandez MD) ADHD (attention deficit hyperactivity disorder) Surgical History Circumcision Family History Mother Mental disorder anxiety/depression Father Substance abuse Alcohol abuse hx of Mental disorder anxiety/depression Stroke Asthma outgrown Other No problems noted. Social History Smoking/Tobacco Use Status: Never Alcohol Intake: never Drug use: Daily Substance use type: marijuana Do you feel safe at home: Yes Do you feel safe in your relationship?: Yes Exam Const General: no acute distress Orientation: alert HENMT Head: normal to inspection Ears: external ears normal General nose exam: external nose normal Mouth: moist mucous membranes Eyes General: appearance normal, both eyes and all related structures Neck Neck: normal visual inspection Resp Effort & Inspection: normal respiratory effort and able to speak in complete sentences Cardio Rate: regular rate Skin General skin exam: no rashes or lesions noted Neuro General: patient alert and patient oriented x3 Extrem General: normal to inspection Psych Mental Status: mental status grossly normal Course Vital Signs Vital signs: Vital Signs Temperature 36.5 C 06/03/20 06:39 Pulse 75 06/03/20 06:39 Respiratory Rate 16 06/03/20 06:39 Blood Pressure 138/83 06/03/20 06:39 Pulse Oximetry 98 06/03/20 06:39 Temperature 36.5 C 06/03/20 06:39 Pulse 75 06/03/20 06:39 Respiratory Rate 16 06/03/20 06:39 Blood Pressure 138/83 06/03/20 06:39 Pulse Oximetry 98 06/03/20 06:39 Pain Level 8 06/03/20 06:39
[2020-06-03] MEDS: Doxycycline Hyclate 100 MG CAP PO (06:49)
[2020-06-03] MEDS: Ibuprofen 600 MG TAB PO (06:49)
== END 2020-06-03 07:04 | disposition home or self-care (01) ==
LOC: ER 06:50
PROVIDERS: Emergency Provider Emergency Medicine
DX: J01.00 Acute maxillary sinusitis, unspecified (principal); R04.0 Epistaxis
CPT/HCPCS: 99283

== ENCOUNTER 2021-09-09 01:18 | Emergency (ER) | payer SELFPAY ==
[2021-09-09 01:24] VITALS: BP 117/77; PULSE 69; RESP 20; TEMP 36.8; O2SAT 99
[2021-09-09] MEDS: Erythromycin Ophth Oint 3.5 GM TUBE (01:27)
[2021-09-09] MEDS: Fluorescein STRIPS 100/BOX 1 MG (01:28)
[2021-09-09] MEDS: Tetracaine 0.5% 4 ML BTL (01:28)
--- NOTE | 2021-09-09 01:51 | ED.GENADUL_ITS ---
Discharge Plan Disposition Patient Disposition: HOME Condition: Good Discharge Details Clinical Impression: Welders' keratitis of both eyes Primary Care Provider: None,None ED Provider: Yasmany Ledbetter Home Meds and New Rx's Prescriptions: Continued ibuprofen 600 mg tablet 600 mg PO QID PRN (Reason: pain) Qty: 20 RF: 0 Discharge Instructions Instructions: Corneal Abrasion (ED) Additional Instructions: At this time you have Welders keratitis which is irritation and inflammation on the superficial layer of your eye. Please apply the erythromycin ointment every 3-4 hours to your eyes. Take the [place] pain pill only as needed. Please follow-up closely with the eye doctor in the next 48 to 72 hours for reassessment. If you notice any worsening of your symptoms, or any new symptoms such as vomiting, diarrhea, fever, chills, shortness of breath, chest pain, numbness, weakness, or fainting , please return immediately to the emergency department for reevaluation. Please follow up with your primary care provider as soon as possible for reassessment and reevaluation. As always, it was a pleasure participating in your medical care today. Stand Alone Forms: Work Release Referrals: [facility] [Outside] Medical Decision Making 21-year-old male with no significant past medical history presents for eye irritation. 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 He denies any history of glaucoma. He denies any grinding or foreign bodies in his eyes. He states that his eyes feel like they are burning. He woke up with symptoms like this. No other complaints at this time. No other modifying factors. Physical exam demonstrates evidence of Welders keratitis bilaterally. Eversion of the lid shows no foreign bodies. Patient does not wear contact lenses. Patient was given tetracaine and had complete resolution of his pain. He will be given [place] to go, erythromycin ointment was placed in his eyes. Patient is otherwise stable. Recommend close outpatient follow-up with Dr. Tanner. Discussed red flags which to return. Family member was at bedside. I have extensively reviewed the treatment plan and discharge instructions with the patient and their family. I have addressed all patient concerns at this time. The patient and family was made aware of what symptoms to monitor for that would warrant a return to the emergency department. Discussed the plan with the patient and family, they demonstrate verbal understanding and agreement with our assessment and plan at this time. The documentation in this chart was dictated using [employer] dictation software. Please excuse any dictation errors. HPI General Date/Time Provider Initiated Documentation: 09/09/21 01:51 . HPI Narrative: 21-year-old male with no significant past medical history presents for eye irritation. 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 He denies any history of glaucoma. He denies any grinding or foreign bodies in his eyes. He states that his eyes feel like they are burning. He woke up with symptoms like this. No other complaints at this time. No other modifying factors. Related Data Home Medications Medication Instructions Recorded Confirmed ibuprofen 600 mg PO QID PRN #20 tab 03/26/19 06/03/20 Previous Rx's Medication Instructions Recorded ibuprofen 600 mg PO QID PRN #20 tab 03/26/19 Allergies Allergy/AdvReac Type Severity Reaction Status Date / Time amoxicillin [Amoxicillin] Allergy Mild RASH Unverified 09/09/21 01:23 Penicillins Allergy Unverified 09/09/21 01:23 General Stated Complaint: EyeProblem ISABELLA: 4 Review of Systems All systems reviewed & are unremarkable except as noted in HPI and below PFSH Medical History ADHD (attention deficit hyperactivity disorder) Surgical History Circumcision Family History Mother Mental disorder anxiety/depression Father Substance abuse Alcohol abuse hx of Mental disorder anxiety/depression Stroke Asthma outgrown Other No problems noted. Social History Smoking/Tobacco Use Status: Never Smoking risk assessment performed?: Yes Alcohol Intake: never Drug use: Daily Substance use type: marijuana Do you feel safe at home: Yes Do you feel safe in your relationship?: Yes Exam Narrative Exam Narrative: 1.Const: Well-nourished, Well-developed, appearing stated age 2.Eyes: PERRL, no conjunctival injection, and symmetrical lids. Patient demonstrates no evidence of corneal abrasion on fluorescein stain. Negative Ada sign bilaterally. The patient does have mild uptake in the front of his eye in a bandlike pattern suggestive of Welders keratitis. Eyes are otherwise nontender. 3.ENT: Atraumatic external nose and ears. Moist MM. Neck: Symmetric, trachea midline, No thyromegaly. 4.CVS: +S1/S2, No murmurs or gallops. Peripheral pulses 2+ and equal in all extremities. Brisk capillary refill in all extremities. 5.RESP: Unlabored respiratory effort. Clear to auscultation bilaterally. No wheezes rales or rhonchi 6.GI: Soft, Nontender/Nondistended, No hepatosplenomegaly. No guarding or rebound. 7.MSK: Normocephalic/Atraumatic, Extremities w/o deformity or ttp No cyanosis or clubbing, Normal movement of all extremities 8.Skin: Warm, Dry. No rashes or lesions. 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 Sensation grossly intact, no focal neurologic deficits. 10.Psych: (AAO) x3. Appropriate mood and affect Course Vital Signs Vital signs: Vital Signs Temperature 36.8 C 09/09/21 01:24 Pulse 69 09/09/21 01:24 Respiratory Rate 20 09/09/21 01:24 Blood Pressure 117/77 09/09/21 01:24 Pulse Oximetry 99 09/09/21 01:24 Temperature 36.8 C 09/09/21 01:24 Temperature Source Tympanic 09/09/21 01:24 Pulse 69 09/09/21 01:24 Respiratory Rate 20 09/09/21 01:24 Respiratory Effort 09/09/21 01:26 Blood Pressure 117/77 09/09/21 01:24 Blood Pressure Position Sitting 09/09/21 01:24 Pulse Oximetry 99 09/09/21 01:24 Oxygen Delivery Method Room Air 09/09/21 01:24 Oxygen Flow Rate 0 09/09/21 01:24 Pain Level 8 09/09/21 01:24
== END 2021-09-09 02:01 | disposition home or self-care (01) ==
PROVIDERS: Emergency Provider Student in an Organized Health Care Education/Training Program
DX: H16.133 Photokeratitis, bilateral (principal); W89.8XXA Exposure to other man-made visible and ultraviolet light, initial encounter
CPT/HCPCS: 99283

== ENCOUNTER 2021-10-11 09:12 | Emergency (ER) | payer SELFPAY ==
[2021-10-11 09:19] VITALS: BP 124/59; PULSE 61; RESP 16; TEMP 36.8; O2SAT 100
[2021-10-11] MEDS: Fluorescein STRIPS 100/BOX 1 MG (09:33)
[2021-10-11] MEDS: Tetracaine 0.5% 4 ML BTL (09:33)
--- NOTE | 2021-10-11 09:47 | ED.GENADUL_ITS ---
Discharge Plan Disposition Patient Disposition: OTHER Condition: Poor Discharge Details Clinical Impression: Foreign body in eye Primary Care Provider: None,None ED Provider: Neftaly Barcenas Home Meds and New Rx's Prescriptions: Continued ibuprofen 600 mg tablet 600 mg PO QID PRN (Reason: pain) Qty: 20 RF: 0 Discharge Instructions Instructions: Eye Foreign Body (ED) Additional Instructions: Please good to [facility] for further care of your eye injury Medical Decision Making Patient presenting with chief complaint of right eye pain. Patient suspects central foreign body due to grinding metal 2 days ago. Patient denies any other injury or trauma or complaint at this time. Physical exam shows an obvious me tallic foreign body that is in the central vision above the pupil with slight placement in the 6 o'clock position. Dye uptake noted around single foreign body otherwise negative exam. EOMs intact with patient complaining of blurry vision but not full vision loss. Patient does have severe photophobia. At this time I doubt globe rupture, no signs of orbital cellulitis, no other trauma noted to head. Patient reports up-to-date tetanus. Discussed with patient removal of foreign body with moistened Q-tip and 18-gauge needle which he was agreeable to. Tetracaine was utilized to provide some anesthetic level prior to procedure. Was able to remove partial metallic foreign body but some remained along with rust ring. Given patient's significant amount of discomfort and difficulty with even visualizing the eye, I consulted [facility]. They were agreeable to see patient urgently in their office for more definitive care. Patient was agreeable to this plan of care and was discharged and informed to go directly to them. After discussion of diagnosis and plan of care patient has no further needs, questions, or concerns and states clear understanding to return to the emergency department for any worsening symptoms. HPI General Mode of arrival: ambulatory . Date/Time Provider Initiated Documentation: 10/11/21 09:25 . Limitations to Documentation: no limitations . Information obtained by: patient . History of Present Illness 21 year old M presents to the emergency department with the chief complaint of Reports R Eye foreign body due to metal grinding, described as severe, with intensity rated at 10. Quality is described as sharp, and is localized to the eyes and right. Patient reports no radiation. Patient started experiencing this day(s) (2) and it has been constant. Other factors that worsen symptoms (lights) . Patient notes no other symptoms.. Patient did receive the following treatments prior to arrival, NSAID and other (ABX Ointment) Related Data Home Medications Medication Instructions Recorded Confirmed ibuprofen 600 mg PO QID PRN #20 tab 03/26/19 10/11/21 Previous Rx's Medication Instructions Recorded ibuprofen 600 mg PO QID PRN #20 tab 03/26/19 Allergies Allergy/AdvReac Type Severity Reaction Status Date / Time amoxicillin [Amoxicillin] Allergy Mild RASH Unverified 10/11/21 09:25 Penicillins Allergy Unverified 10/11/21 09:25 General Stated Complaint: EyeProblem ISABELLA: 4 Review of Systems Constitutional Constitutional: Denies chills, Denies fever(s) and Denies headache(s) Eyes Eyes: Reports as per HPI and Denies loss of vision ENT Ears, Nose, Mouth, and Throat: Denies dental pain, Denies headache(s) and Denies neck pain Cardiovascular Cardiovascular: Denies chest pain and Denies syncope Respiratory Respiratory: Denies cough Gastrointestinal Gastrointestinal: Denies nausea Musculoskeletal Musculoskeletal: Denies neck pain Neurologic Neurologic: Denies syncope, Denies headache(s) and Denies loss of vision PFSH All Active Problems Welders' keratitis of both eyes (Acute) Foreign body in eye (Acute) Medical History ADHD (attention deficit hyperactivity disorder) Surgical History Circumcision Family History Mother Mental disorder anxiety/depression Father Substance abuse Alcohol abuse hx of Mental disorder anxiety/depression Stroke Asthma outgrown Other No problems noted. Social History Smoking/Tobacco Use Status: Never Smoking risk assessment performed?: Yes Alcohol Intake: never Drug use: Daily Substance use type: marijuana Do you feel safe at home: Yes Do you feel safe in your relationship?: Yes Exam Const General: cooperative, no acute distress and not ill appearing Orientation: alert, awake and oriented x3 HENMT Mouth: moist mucous membranes Eyes Alignment and Position: alignment normal and position normal Periorbital: periorbital findings normal Eyelids: eyelids normal Conjunctivae: conjunctival abnormality right conjunctival injection Sclera: scleral abnormality right scleral injection Cornea: corneas abnormal on the right fluorescein used (Dye uptake around FB) and foreign body metallic and with rust ring present and fluorescein used EOM: EOM intact bilaterally Resp Effort & Inspection: normal respiratory effort, able to speak in complete sentences and no respiratory distress Skin General skin exam: no rashes or lesions noted Neuro General: patient alert, patient awake, patient oriented x3, moves all extremities and no focal motor deficits Sensory Exam: no sensory deficits noted Course Vital Signs Vital signs: Vital Signs Temperature 36.8 C 10/11/21 09:19 Pulse 61 10/11/21 09:19 Respiratory Rate 16 10/11/21 09:19 Blood Pressure 124/59 L 10/11/21 09:19 Pulse Oximetry 100 10/11/21 09:19 Temperature 36.8 C 10/11/21 09:19 Temperature Source Skin 10/11/21 09:19 Pulse 61 10/11/21 09:19 Respiratory Rate 16 10/11/21 09:19 Respiratory Effort 10/11/21 09:19 Blood Pressure 124/59 L 10/11/21 09:19 Blood Pressure Position Sitting 10/11/21 09:19 Pulse Oximetry 100 10/11/21 09:19 Oxygen Delivery Method Room Air 10/11/21 09:19 Oxygen Flow Rate 0 10/11/21 09:19 Pain Level 10 10/11/21 09:19
== END 2021-10-11 09:55 | disposition other institution (70) ==
PROVIDERS: Emergency Provider Nurse Practitioner Family
DX: T15.81XA Foreign body in other and multiple parts of external eye, right eye, initial encounter (principal); X58.XXXA Exposure to other specified factors, initial encounter
CPT/HCPCS: 99283

== ENCOUNTER 2021-12-07 10:07 | Emergency (ER) | payer SELFPAY ==
[2021-12-07 10:14] VITALS: BP 130/86; PULSE 75; RESP 16; TEMP 37; O2SAT 98
--- NOTE | 2021-12-07 10:46 | W.ED.GENAD ---
Discharge Plan Disposition Patient Disposition: HOME Condition: Stable Discharge Details Clinical Impression: Dental infection Primary Care Provider: None,None ED Provider: Ra Whitney Home Meds and New Rx's Prescriptions: New clindamycin HCl 300 mg capsule 300 mg PO TID 10 Days Qty: 30 0RF Continued ibuprofen 600 mg tablet 600 mg PO QID PRN (Reason: pain) Qty: 20 0RF Discharge Instructions Instructions: Dental Abscess (ED) Additional Instructions: Clindamycin as directed. [id number] Tylenol and/or Motrin as directed for discomfort. Warm compresses every 2 hours for 20 minutes. Please watch for new or worsening symptoms and return to the ER for any concerns. I have provided you with our local dental list, please contact the dentist on this list on Thursday and make the soonest outpatient follow-up appointment. Medical Decision Making 21-year-old gentleman presents for dental infection that he states began last night. Denies recent illness or trauma. Denies fever, difficulty speaking, swallowing, breathing. No evidence of trismus. Clinically he appears well, nontoxic. He does appear to have mild right-sided facial swelling but no obvious pointing abscess. Given his allergies to penicillin, will provide him with his first dose of clindamycin now, a prescription, and a local dental list to help expedite outpatient dental care. Standard discharge and return precautions were provided. This documentation was generated using [facility] dictation system, please disregard any oddities of phrase or misspellings. Medical Records Medical records reviewed: Yes I reviewed the patient's medical records. HPI General Date/Time Provider Initiated Documentation: 12/07/21 10:26. Limitations to Documentation: no limitations. Information obtained by: patient. History of Present Illness 21 year old M presents to the emergency department with the chief complaint of Dental infection, described as moderate, Quality is described as aching, and is localized to the face and mouth. Patient reports no radiation. and it has been constant. improves with No relieving factors improve symptom(s), No exacerbating factors reported . Patient notes no other symptoms.. Patient did receive the following treatments prior to arrival, NSAID Related Data Home Medications Medication Instructions Recorded Confirmed ibuprofen 600 mg tablet 600 mg PO QID PRN #20 tab 03/26/19 12/07/21 clindamycin HCl 300 mg capsule 300 mg PO TID 10 Days #30 cap 12/07/21 Previous Rx's Medication Instructions Recorded ibuprofen 600 mg tablet 600 mg PO QID PRN #20 tab 03/26/19 clindamycin HCl 300 mg capsule 300 mg PO TID 10 Days #30 cap 12/07/21 Allergies Allergy/AdvReac Type Severity Reaction Status Date / Time amoxicillin [Amoxicillin] Allergy Mild RASH Unverified 12/07/21 10:17 Penicillins Allergy Unverified 12/07/21 10:17 General Stated Complaint: DentalOral ISABELLA: 4 Review of Systems Constitutional Constitutional: Denies fever(s) and Denies headache(s) ENT Ears, Nose, Mouth, and Throat: Denies headache(s) and Denies sore throat Respiratory Respiratory: Denies cough Integumentary/Breasts Skin/Breast: Denies rash Neurologic Neurologic: Denies headache(s) PFSH All Active Problems (Updated 12/07/21 @ 11:04 by YAN Patton) Welders' keratitis of both eyes (Acute) Foreign body in eye (Acute) Dental infection (Acute) Medical History (Updated 12/07/21 @ 11:04 by YAN Patton) ADHD (attention deficit hyperactivity disorder) Surgical History Circumcision Family History Mother Mental disorder anxiety/depression Father Substance abuse Alcohol abuse hx of Mental disorder anxiety/depression Stroke Asthma outgrown Other No problems noted. Social History Smoking/Tobacco Use Status: Current every day Tobacco Type: smokeless tobacco Smoking risk assessment performed?: Yes Alcohol Intake: never Drug use: Daily Substance use type: marijuana Do you feel safe at home: Yes Do you feel safe in your relationship?: Yes Exam Const General: cooperative, healthy appearing, comfortable and no acute distress Orientation: alert and awake [facility] Head: normal to inspection, normocephalic and atraumatic Ears: external ears normal, TM's normal bilaterally and EAC's normal General nose exam: external nose normal Face images: 1. Diffuse mild swelling. There is no warmth, erythema, fluctuance. Skin is intact. Mild induration and tenderness. No trismus. Mouth: moist mucous membranes Teeth and gingiva: fair dentition Throat: posterior oropharynx normal Eyes General: appearance normal, both eyes and all related structures Conjunctivae: conjunctivae normal Neck Neck: normal visual inspection, full ROM, no meningeal signs, trachea midline, supple, lymphadenopathy right anterior cervical and nontender Resp Effort & Inspection: normal respiratory effort and able to speak in complete sentences Auscultation: clear to auscultation bilaterally Cardio Rate: regular rate Rhythm: regular rhythm Skin General skin exam: no rashes or lesions noted Neuro General: patient alert, patient awake, moves all extremities and no focal motor deficits Cognition: normal cognition Speech: speech normal Sensory Exam: no sensory deficits noted Psych Appearance: grossly normal Mental Status: mental status grossly normal Course Vital Signs Vital signs: Vital Signs Temperature 37 C 12/07/21 10:14 Pulse 75 12/07/21 10:14 Respiratory Rate 16 12/07/21 10:14 Blood Pressure 130/86 12/07/21 10:14 Pulse Oximetry 98 12/07/21 10:14 Temperature 37 C 12/07/21 10:14 Temperature Source Temporal Artery Scan 12/07/21 10:14 Pulse 75 12/07/21 10:14 Respiratory Rate 16 12/07/21 10:14 Respiratory Effort Non-Labored 12/07/21 10:18 Blood Pressure 130/86 12/07/21 10:14 Pulse Oximetry 98 12/07/21 10:14 Oxygen Delivery Method Room Air 12/07/21 10:14 Oxygen Flow Rate 0 12/07/21 10:14
[2021-12-07] MEDS: Clindamycin 300 MG CAP PO (11:05)
--- NOTE | 2021-12-07 11:38 | NUR.NOTE ---
[facility] closed all weekend rx called to isaac samaniego in [facility] Note:
== END 2021-12-07 11:11 | disposition home or self-care (01) ==
PROVIDERS: Emergency Provider Physician Assistant
DX: K04.7 Periapical abscess without sinus (principal)
CPT/HCPCS: 99283

== ENCOUNTER 2022-03-09 21:45 | Emergency (ER) | payer SELFPAY ==
[2022-03-09 22:23] VITALS: BP 122/76; PULSE 83; RESP 18; TEMP 36; O2SAT 99
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
== END 2022-03-09 23:06 | disposition home or self-care (01) ==
PROVIDERS: Emergency Provider Student in an Organized Health Care Education/Training Program
DX: S81.812A Laceration without foreign body, left lower leg, initial encounter (principal); V86.56XA Driver of dirt bike or motor/cross bike injured in nontraffic accident, initial encounter
CPT/HCPCS: 12002

== ENCOUNTER 2022-03-13 20:50 | Emergency (ER) | payer SELFPAY ==
[2022-03-13 20:55] VITALS: BP 127/78; PULSE 72; RESP 19; TEMP 37.2; O2SAT 99
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
[2022-03-13] MEDS: Clindamycin 150 MG CAP, 12 CAPS/BTL 450 MG PO (21:06)
== END 2022-03-13 21:19 | disposition home or self-care (01) ==
PROVIDERS: Emergency Provider Student in an Organized Health Care Education/Training Program
DX: S81.812D Laceration without foreign body, left lower leg, subsequent encounter (principal); L03.116 Cellulitis of left lower limb; X58.XXXD Exposure to other specified factors, subsequent encounter
CPT/HCPCS: 99283

== ENCOUNTER 2022-03-29 13:20 | Emergency (ER) | payer SELFPAY ==
[2022-03-29 13:24] VITALS: BP 115/58; PULSE 79; RESP 16; TEMP 36.8; O2SAT 99
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
== END 2022-03-29 14:13 | disposition home or self-care (01) ==
PROVIDERS: Emergency Provider Physician Assistant
DX: S81.812D Laceration without foreign body, left lower leg, subsequent encounter (principal); X58.XXXD Exposure to other specified factors, subsequent encounter; Z48.02 Encounter for removal of sutures

== ENCOUNTER 2023-01-06 13:19 | Emergency (ER) | payer SELFPAY ==
[2023-01-06 13:25] VITALS: BP 124/77; PULSE 78; RESP 18; TEMP 36.6; O2SAT 98
--- NOTE | 2023-01-06 13:38 | ED.GENADUL_ITS ---
Discharge Plan Disposition Patient Disposition: Home Discharge Details Clinical Impression: Pain, dental Primary Care Provider: None,None ED Provider: Pallavi Kovacs Home Meds and New Rx's Prescriptions: New clindamycin HCl 300 mg capsule 300 mg PO QID Qty: 40 0RF Continued ibuprofen 600 mg tablet 800 mg PO QID PRN (Reason: pain) Discharge Instructions Instructions: Toothache (ED) Additional Instructions: Take antibiotic as prescribed Take ibuprofen and Tylenol for pain Follow-up with the dentist listed Stay away from very hot and very cold May use some [id number] dental wax to fill the gap in your tooth which may help with your pain Return immediately if fever, chills, or should he have new or worsening c omplaints Discharge Data Discharge Date/Time-TO BE ENTERED AT DEPARTURE: 01/06/23 13:52 Medical Decision Making Patient appears well, there is no evidence of deep space infection clinically for this patient presenting with jaw pain He denies any difficulty swallowing There is no clinical evidence of Lele's angina Placed on clindamycin Dental list supplied Encouraged to call tomorrow to schedule outpatient appointment No evidence of deep space infection Return precautions reviewed and patient expressed understanding HPI General Date/Time Provider Initiated Documentation: 01/06/23 13:22 . HPI Narrative: This 22-year-old male presents with report of dental pain, right lower for the past month intermittently. He states he chipped his tooth and feels as though the pain is gradually become worse, it starts in his jaw and radiates to his facial bone. He denies any fever or chills. He denies any difficulty swallowing or shortness of breath. Denies any additional complaints at this time. Related Data Home Medications Medication Instructions Recorded Confirmed clindamycin HCl 300 mg capsule 300 mg PO QID #40 caps 01/06/23 ibuprofen 600 mg tablet 800 mg PO QID PRN pain 01/06/23 Previous Rx's Medication Instructions Recorded clindamycin HCl 300 mg capsule 300 mg PO QID #40 caps 01/06/23 Allergies Allergy/AdvReac Type Severity Reaction Status Date / Time amoxicillin [Amoxicillin] Allergy Mild RASH Unverified 01/06/23 13:28 Penicillins Allergy Unverified 01/06/23 13:28 General Stated Complaint: DentalOral ISABELLA: 3 PFSH All Active Problems (Updated 01/06/23 @ 13:42 by YAN Perez) Welders' keratitis of both eyes (Acute) Foreign body in eye (Acute) Pain, dental (Acute) Medical History (Updated 01/06/23 @ 13:42 by YAN Perez) ADHD (attention deficit hyperactivity disorder) Surgical History Circumcision Family History Mother Mental disorder anxiety/depression Father Substance abuse Alcohol abuse hx of Mental disorder anxiety/depression Stroke Asthma outgrown Other No problems noted. Social History Smoking/Tobacco Use Status: Former Tobacco Use Smoking risk assessment performed?: Yes Alcohol Intake: never Drug use: Daily Substance use type: marijuana Do you feel safe at home: Yes Do you feel safe in your relationship?: Yes Exam Const Other: This 22-year-old male is in no acute distress, fully alert and oriented, he has some mild swelling to the right mandibular region, #29 with fracture noted, no surrounding erythema or edema, no soft palate induration, no evidence of significant deep space infection, lungs clear to auscultation, rate rhythm regular, no stridor Course Vital Signs Vital signs: Vital Signs Temperature 36.6 C 01/06/23 13:25 Pulse 78 01/06/23 13:25 Respiratory Rate 18 01/06/23 13:25 Blood Pressure 124/77 01/06/23 13:25 Pulse Oximetry 98 01/06/23 13:25 Temperature 36.6 C 01/06/23 13:25 Temperature Source Tympanic 01/06/23 13:25 Pulse 78 01/06/23 13:25 Respiratory Rate 18 01/06/23 13:25 Respiratory Effort Normal, Non-Labored 01/06/23 13:29 Blood Pressure 124/77 01/06/23 13:25 Blood Pressure Position Sitting 01/06/23 13:25 Pulse Oximetry 98 01/06/23 13:25 Oxygen Delivery Method Room Air 01/06/23 13:25 Oxygen Flow Rate 0 01/06/23 13:25
[2023-01-06 13:49] VITALS: BP 124/77; PULSE 78; RESP 18; TEMP 36.6; O2SAT 98
== END 2023-01-06 13:52 | disposition home or self-care (01) ==
PROVIDERS: Emergency Provider Physician Assistant
DX: K08.89 Other specified disorders of teeth and supporting structures (principal); R68.84 Jaw pain
CPT/HCPCS: 99283

== ENCOUNTER 2024-11-11 12:23 | Emergency (ER) | payer MEDICAID, SELFPAY ==
[2024-11-11] VITALS (12 sets, daily range): BP systolic 94–131; BP diastolic 50–102; PULSE 70–101; RESP 12–23; TEMP 36.3; O2SAT 96–100
--- NOTE | 2024-11-11 12:44 | ED.GENADUL_ITS ---
Discharge Plan Disposition Patient Disposition: Home Condition: Stable Discharge Details Clinical Impression: Closed trimalleolar fracture of right ankle Primary Care Provider: Unknown,Unknown ED Provider: Yasmany Olivera Home Meds and New Rx's Prescriptions: No Action ibuprofen 600 mg tablet 800 mg PO QID PRN (Reason: pain) oxycodone 5 mg tablet 5 mg PO Q1-4H PRN Discharge Instructions Instructions: Fracture, Adult ED Additional Instructions: You were seen in the emergency department for your significant fracture/dislocation of your right ankle. This was reduced by myself with you under conscious sedation with improvement of the fracture alignment and dislocation. Please use therapeutic dosing of Tylenol (acetamenophen) & Advil (ibuprofen) in an alternating fashion as follows: Take 1000mg of Tylenol every 6 hours without missing doses- that is 4 times per day. Alf in between the Tylenol dosings, take 400-600mg of Advil also on a 6 hour schedule, that is also 4 times per day. The daily maximum dosing of Tylenol is 4000mg, and the daily maximum dosing of Advil is 2400mg. This is safe to do for weeks. Please note that some common cold medications & prescription pain medications may contain acetamenophen and you need to read OTC drug labels and factor that in to maximum daily dosings. Please use significant amounts of ice, elevate your ankle, use crutches, do not weight-bear on your right ankle. Use the provided to go pack of oxycodone sparingly for breakthrough pain only. Please follow-up by calling orthopedics on Thursday morning. Referrals: [facility] [Provider Group] Discharge Data Discharge Date/Time-TO BE ENTERED AT DEPARTURE: 11/11/24 15:58 HPI General Date/Time Provider Initiated Documentation: 11/11/24 12:43 . HPI Narrative: 24 year-old male presents to ED today by EMS with a chief complaint of R foot injury- R-side dominant, with onset just prior to arrival. Patient was moving a very heavy filing cabinet down some stairs when he dropped it on his R foot and was dragged down a couple stairs, has deformity. Quality described as severe pain, worse with movement, no radiation to complete numbness, coldness of extremity, proximal calf pain. Severity is described as 10/10. Palliating factors include nothing attempted yet. Provoking factors include nothing specific. Events leading up to the incident/Associated Symptoms: Patient denies prior surgery to affected foot. Patient not anticoagulated. Related Data Home Medications ?Medication ?Instructions ?Recorded ?Confirmed ibuprofen 600 mg tablet 800 mg PO QID PRN pain 01/06/23 11/12/24 oxycodone 5 mg tablet 5 mg PO Q1-4H PRN 11/12/24 11/12/24 Allergies Allergy/AdvReac Type Severity Reaction Status Date / Time Penicillins Allergy Severe Anaphylaxis Unverified 11/12/24 17:35 amoxicillin (Amoxicillin) Allergy Mild RASH Unverified 11/12/24 17:35 General Stated Complaint: Orthopedic ISABELLA: 4 Review of Systems All systems reviewed & are unremarkable except as noted in HPI and below Exam Narrative Exam Narrative: GENERAL APPEARANCE: Well-nourished, non-toxic, awake and alert, atraumatic, no acute distress. SKIN: Warm, pink, dry, intact, without rashes/lesions/ulcerations. HEAD: Normocephalic, atraumatic, normal hair distribution for gender/age. EYES: Normal conjunctiva, no exudates on lids/lashes. ENT: Nares patent, no circumoral cyanosis, no facial swelling NECK: Supple, trachea midline, painless cervical ROM. LUNGS/CHEST: Lungs CTA bilaterally, non-labored respirations, normal A/P diameter, symmetrical expansion, no chest wall deformity HEART (CV/PV): Regular rate and rhythm without murmur, no peripheral edema, no JVD. ABDOMEN: Soft, non-distended, no guarding. MSK: Normal ROM, no swelling/deformity to bilateral UEs or LEs, moving all extremities without weakness, no cyanosis, spine midline without tenderness, normal curvature. NEURO: Mental Status AAOx4 - alert to person, place, time, events No facial droop, no forehead involvement. Motor: No focal weakness - strength 5/5 in bilateral UEs and LEs, proximal and distal, symmetric. Sensory: sensation intact to light touch globally. Gait normal: patient ambulated without ataxia into ED room. PSYCH: euthymic, cooperative, pleasant, appropriate speech Course Vital Signs Vital signs: Vital Signs Temperature 36.3 C L 11/11/24 12:31 Pulse 86 11/11/24 12:31 Respiratory Rate 11/11/24 12:31 Blood Pressure 122/74 11/11/24 12:31 Pulse Oximetry 99 11/11/24 12:31 Temperature 36.3 C L 11/11/24 12:31 Temperature Source Oral 11/11/24 12:31 Pulse 86 11/11/24 12:31 Respiratory Rate 12 11/11/24 12:31 Blood Pressure 122/74 11/11/24 12:31 Blood Pressure Position Sitting 11/11/24 12:31 Pulse Oximetry 99 11/11/24 12:31 Oxygen Delivery Method Room Air 11/11/24 12:31 Oxygen Flow Rate 0 11/11/24 12:31 Pain Level 4 11/11/24 12:31 Procedure Joint Reduction Joint #1: Date of Procedure: 11/11/24 Time of procedure: 14:30 Provider that performed the procedure: Yasmany Olivera Standard Time Out Performed: Yes Patient Consented: Written Pre-procedure medication: Other (See Dr. Cloud's note) Side: right Joint reduction location: ankle Post-Reduction Neuro Exam: intact Post-Reduction Vascular Exam: intact Post Reduction X-Ray Obtained: Yes Post Reduction X-Ray Results: reduced Splint Applied: Yes Patient Tolerated Procedure: well Orthopedic Splinting/Casting Date of Procedure: 11/11/24 Time of procedure: 14:30 Provider that performed the procedure: Yasmany Olivera Standard Time Out Performed: Yes Patient Consented: Written Pre Procedure Medication: Other (Propofol, see Dr. Cloud's note) Side: right Lower Extremity Injury Location: ankle Lower Extremity Immobilizer: posterior splint and stirrup splint Weight bearing status: non-weight bearing as tolerated Other Orthopedic Equipment: crutches Medical Decision Making This dictation utilizes [id number]-nuin dictation software and may contain unedited grammatical errors. 24 year-old male presents to ED today by EMS with a chief complaint of R foot injury- R-side dominant, with onset just prior to arrival. Patient was moving a very heavy filing cabinet down some stairs when he dropped it on his R foot and was dragged down a couple stairs, has deformity. Quality described as severe pain, worse with movement, no radiation to complete numbness, coldness of extremity, proximal calf pain. Severity is described as 10/10. Palliating factors include nothing attempted yet. Provoking factors include nothing specific. Events leading up to the incident/Associated Symptoms: Patient denies prior surgery to affected foot. Patients' medical history: negative, otherwise healthy. Family and social history: noncontributory. Pertinent exam findings / vital signs include R foot swelling/ecchymosis/deformity with some posterior displacement/dislocation, dorsalis pedis pulse 2+, brisk capillary refill, sensation intact, no proximal calf pain, no tarsal tenderness. Differential / pathologies of concern include fracture/dislocation. Diagnostic studies of: -XR R ankle-shows bimalleolar fracture with posterior dislocation. Interventions of: -Conscious sedation performed by Dr. Wisam Cloud, please see his note, I performed a closed reduction and splinting with post-reduction XR confirming improved aligned and reduction of dislocation. ED Course/Assessment/Plan: 24-year-old male dropped a very heavy file cabinet on his right ankle was dragged down a couple stairs, has a fracture dislocation of the right ankle, initial x-ray showed bimalleolar fracture but after reduction under propofol sedation performed by Dr. Wisam Cloud the postreduction x-ray showed trimalleolar fracture with improved alignment of fracture and reduction of dislocation, I did speak with Ortho Dr. Matta, stressed no weightbearing, crutches and RICE therapy over the weekend and will follow-up with them on Thursday for surgical planning, I discussed compartment syndrome precautions with the patient and provided oxycodone to go and recommend therapeutic dosing Tylenol and ibuprofen. Findings not consistent with neurovascular compromise. Disposition of Closed trimalleolar fracture of right ankle. Patient verbalized understanding of the plan and return to ED criteria and engaged in shared decision making. Medical Records Medical records reviewed: Yes I reviewed the patient's medical records. Imaging Data Radiologic Study: Attestation: I personally reviewed and interpreted this imaging study as follows: Imaging: X-Ray Radiologist's impression: EXAM: XR ANKLE RT COMPLETE CLINICAL HISTORY: ?disloc ankle. TECHNIQUE: 2D digital imaging was performed. Three views. COMPARISON: CR RIGHT ANKLE COMPLETE from 07/15/2015 FINDINGS: BONES: Oblique fracture through lateral malleolus with extension down to the level of the ankle mortise. Significant lateral and posterior displacement. Transverse fracture through the medial malleolus which also show significant displacement. JOINTS: The talus is dislocated posteriorly and laterally with respect to the distal tibia. SOFT TISSUE: Swelling and joint effusion IMPRESSION: Bimalleolar fracture with posterolateral dislocation of the talus. Radiologic Study #2: Attestation: I personally reviewed and interpreted this imaging study as follows: Imaging: X-Ray Radiologist's impression: EXAM: XR ANKLE RT COMPLETE CLINICAL HISTORY: post-reduction. TECHNIQUE: 2D digital imaging was performed. Three views. COMPARISON: CR XR ANKLE RT COMPLETE from 11/11/2024 FINDINGS: A splint is now in place. There has been improved alignment in the bimalleolar fracture. The previously noted dislocation has been reduced. IMPRESSION: Improved fracture alignment. Quality:SDOH Health Related Social Needs: 2 No Data to Display PFSH All Active Problems (Updated 11/12/24 @ 22:33 by Vidhya Cota MD) Closed trimalleolar fracture of right ankle (Acute) Foreign body in eye (Acute) Welders' keratitis of both eyes (Acute) Medical History (Updated 11/12/24 @ 22:33 by Vidhya Cota MD) ADHD (attention deficit hyperactivity disorder) Surgical History Circumcision Family History Mother Mental disorder anxiety/depression Father Substance abuse Alcohol abuse hx of Mental disorder anxiety/depression Stroke Asthma outgrown Other No problems noted. Social History Smoking/Tobacco Use Status: Former Tobacco Use Smoking risk assessment performed?: Yes Alcohol Intake: never Drug use: Daily Substance use type: marijuana Housing: house Do you feel safe at home: Yes Do you feel safe in your relationship?: Yes
--- NOTE | 2024-11-11 13:04 | DI.RAD_ITS ---
Exam(s) XR ANKLE RT COMPLETE EXAM: XR ANKLE RT COMPLETE CLINICAL HISTORY: ?disloc ankle. TECHNIQUE: 2D digital imaging was performed. Three views. COMPARISON: CR RIGHT ANKLE COMPLETE from 07/15/2015 FINDINGS: BONES: Oblique fracture through lateral malleolus with extension down to the level of the ankle morti se. Significant lateral and posterior displacement. Transverse fracture through the medial malleolu s which also show significant displacement. JOINTS: The talus is dislocated posteriorly and laterally with respect to the distal tibia. SOFT TISSUE: Swelling and joint effusion IMPRESSION: Bimalleolar fracture with posterolateral dislocation of the talus. DATA REPOSITORY: RADIATION DOSE DELIVERED:
[2024-11-11] MEDS: ACETAMINOPHEN 1,000 MG/100 ML BAG 400 MG IVPB (13:45)
[2024-11-11] MEDS: Ketorolac 15 MG/ML VIAL IVP (13:45)
[2024-11-11] MEDS: fentaNYL 100 MCG/2 ML VIAL 50 MCG IVP (14:18)
--- NOTE | 2024-11-11 14:50 | DI.RAD_ITS ---
Exam(s) XR ANKLE RT COMPLETE EXAM: XR ANKLE RT COMPLETE CLINICAL HISTORY: post-reduction. TECHNIQUE: 2D digital imaging was performed. Three views. COMPARISON: CR XR ANKLE RT COMPLETE from 11/11/2024 FINDINGS: A splint is now in place. There has been improved alignment in the bimalleolar fracture. The previo usly noted dislocation has been reduced. IMPRESSION: Improved fracture alignment. DATA REPOSITORY: RADIATION DOSE DELIVERED:
[2024-11-11] MEDS: Propofol 200 MG/20 ML VIAL 70 MG IVP (14:58)
--- NOTE | 2024-11-11 15:32 | RESPIRATORY ---
11/11/24 Assisted with conscious sedation; Ambu-bag, suction, oral/nasal airways at bedside; ETCO2 on pt; pt placed on 15L oxymask for preoxygenation. Pt did well during procedure, did require jaw thrust for a short 30-60sec period. Pt awoke after procedure, pt talking and awake before this RT left the room.
[2024-11-11] MEDS: oxyCODONE 5 MG TAB 20 MG PO (16:56)
--- NOTE | 2024-11-12 08:43 | NUR.NOTE ---
Access chart to get the diagnosis information for the Surgi Care requisition. Nursing Note:
== END 2024-11-11 15:58 | disposition home or self-care (01) ==
PROVIDERS: Emergency Provider Physician Assistant
DX: S82.851A Displaced trimalleolar fracture of right lower leg, initial encounter for closed fracture (principal); W20.8XXA Other cause of strike by thrown, projected or falling object, initial encounter
CPT/HCPCS: 27818; 96365; 96366; 96375; 99284; 73610; J0131; J1885; J2704; J3010

== ENCOUNTER 2024-11-12 17:30 | Emergency (ER) | payer MEDICAID, SELFPAY ==
[2024-11-12 17:33] VITALS: BP 132/77; PULSE 92; RESP 16; TEMP 36.6; O2SAT 98
[2024-11-12] MEDS: Ibuprofen 600 MG TAB PO (18:06)
[2024-11-12] MEDS: MORPHine IR 15 MG TAB PO (18:08)
--- NOTE | 2024-11-12 18:30 | DI.RAD_ITS ---
Exam(s) XR ANKLE RT COMPLETE EXAM: XR ANKLE RT COMPLETE INDICATION: Repeat for bimalleolar fx. COMPARISON: CR XR ANKLE RT COMPLETE from 11/11/2024 TECHNIQUE: 2D digital imaging was performed. Two views. FINDINGS: Overlying cast material somewhat obscures the bony detail. There has been no significant change in t he alignment of the medial and lateral malleolar fractures. A nondisplaced fracture is also visible through the posterior malleolus. DATA REPOSITORY: RADIATION DOSE DELIVERED:
--- NOTE | 2024-11-12 20:00 | DI.RAD_ITS ---
Exam(s) XR ANKLE RT 2V EXAM: XR ANKLE RT 2V CLINICAL HISTORY: Mini C-arm reduction. TECHNIQUE: 2D and realtime digital imaging was performed. COMPARISON: CR,XR XR ANKLE RT COMPLETE from 11/12/2024 FINDINGS: Hard copy images show 6 difficult end improvement in the alignment of the previous noted fractures o f the medial and lateral malleoli. Ankle mortise is no longer widened. The posterior malleolar frac ture is not visible due to lack of image detail. Please see procedure note for details. Fluoro time: 6seconds RADIATION DOSE DELIVERED: austin Benedict=0.48 mGy
--- NOTE | 2024-11-12 20:37 | DI.VRAD_ITS ---
PROCEDURE INFORMATION: Exam: XR Right Ankle Exam date and time: 11/12/2024 6:51 PM Age: 24 years old Clinical indication: Other: Re peat for bimalleolar FX TECHNIQUE: Imaging protocol: Radiologic exam of the right ankle. Views: 3 or more views. COMPARISON: CR XR ANKLE RT COMPLETE 11/11/2024 3:13 PM FINDINGS: Bones/joints: Again seen, distal fibula fracture and medial malleolus fracture. Small fracture through the posterior malleolus again seen. There is asymmetry to the ankle mortise with a proximally 4 mm of lateral displacement of the tibia from the talus. Overlying cast noted. Soft tissues: Diffuse soft tissue edema. IMPRESSION: 1. Again seen, distal fibula fracture and medial malleolus fracture. Small fracture through the posterior malleolus again seen. There is asymmetry to the ankle mortise with a proximally 4 mm of lateral displacement of the tibia from the talus. Overlying cast noted. 2. Diffuse soft tissue edema. Dictated and Authenticated by: Kaci Benson MD. Ordering:ANGLE Almanza MD
--- NOTE | 2024-11-12 21:16 | ED.GENADUL_ITS ---
Discharge Plan Disposition Patient Disposition: Home Condition: Stable Discharge Details Clinical Impression: Closed trimalleolar fracture of right ankle Primary Care Provider: None,None ED Provider: Vidhya Cota Home Meds and New Rx's Prescriptions: No Action ibuprofen 600 mg tablet 800 mg PO QID PRN (Reason: pain) oxycodone 5 mg tablet 5 mg PO Q1-4H PRN Discharge Instructions Instructions: Fracture, Adult ED Additional Instructions: You were seen in the emergency department today for evaluation of numbness and poor circulation due to your splint. The splint was loosened, and we repeated an x-ray which does show worsening of the alignment. You were placed in a new splint with some improved alignment on your repeat x-ray, and need to keep your follow-up appointment with orthopedics for definitive management of this fracture. I have provided you with a short course of oral morphine to be used for breakthrough pain, you should also continue to use Tylenol and ibuprofen as well as ice and elevation for swelling. Thank you for allowing us to be part of your care. HPI General Mode of arrival: ambulatory . Date/Time Provider Initiated Documentation: 11/12/24 17:51 . Limitations to Documentation: no limitations . Information obtained by: patient, family and old records reviewed . HPI Narrative: HPI: This is a 24-year-old male patient who sustained a bimalleolar fracture yesterday, reduced in the emergency department, who is presenting for evaluation of worsening pain and numbness/tingling of the foot. He was instructed return with any evidence of compression or sensory changes, states that he noticed that his toes were very cold and turning white, and presented for care. He states that he has noted a grinding sensation of the bones in the ankle, has been using his home multimodal pain management regimen with modest success. He has not sustained any additional injury. Exam: Gen: Awake and alert, in no apparent distress HEENT: Non-icteric sclera Neck: Supple Lungs: No apparent respiratory distress, normal respiratory effort. CV: Appears well perfused Abdomen: Non-distended MSK: Moves 4 extremities without apparent limitation in ROM, with the exception of the right lower extremity. He is in a Ortho-Glass splint, with delayed capillary refill on initial examination. Preserved motion and sensation. Skin: Visualized skin without rashes, cyanosis. Neuro: Normal Gait, no obvious focal deficits or facial asymmetry. Speaks in full, clear sentences. Psych: Appropriate for situation. MDM: This is a 24-year-old male patient presenting for evaluation of increasing pain in the setting of a known bimalleolar fracture. Differential includes but is not limited to instability of the fracture, compression due to the tight splint. The patient had his splint removed and after that had brisk capillary refill and improvement in his symptoms, and that reassures me against compartment syndrome, neurovascular derangement. We obtained repeat x-ray imaging that does show some worsened alignment, and I consulted [facility] orthopedics, who is concerned that the splint allows for too much plantarflexion and recommended replacement of the splint. I do not see indication at this time for advanced imaging, but did provide the patient with medications for pain management. ED Course: Procedural sedation due to painful procedure was performed, the ankle was manipulated into more anatomic alignment with C arm demonstrating improvement in anatomy at bedside. A dorsal slab and stirrup splint was placed and the foot was ensured to be in a neutral position without excessive plantarflexion. Postreduction x-rays obtained, showing improved alignment and near anatomic positioning, though certainly I remain concerned about the instability of this fracture. Per [facility] orthopedics, this does not require emergent surgical intervention, and the patient was hemodynamically appropriate and neuro intact after this procedure. He is desiring to attempt to wait until he can be seen by orthopedics here for evaluation, and I did provide him with a short course of oral morphine for breakthrough pain in the home environment. At this time, the patient has had a full medical evaluation and is safe for discharge to home. They are hemodynamically stable, ambulatory, and tolerating PO. They are understanding of the follow-up plan and return precautions. They left our facility without incident. Vidhya Cota MD Related Data Home Medications ?Medication ?Instructions ?Recorded ?Confirmed ibuprofen 600 mg tablet 800 mg PO QID PRN pain 01/06/23 11/12/24 oxycodone 5 mg tablet 5 mg PO Q1-4H PRN 11/12/24 11/12/24 Allergies Allergy/AdvReac Type Severity Reaction Status Date / Time Penicillins Allergy Severe Anaphylaxis Unverified 11/12/24 17:35 amoxicillin (Amoxicillin) Allergy Mild RASH Unverified 11/12/24 17:35 General Stated Complaint: Orthopedic ISABELLA: 4 Course Vital Signs Vital signs: Vital Signs Temperature 36.6 C 11/12/24 17:33 Pulse 92 H 11/12/24 17:33 Respiratory Rate 16 11/12/24 17:33 Blood Pressure 132/77 11/12/24 17:33 Pulse Oximetry 98 11/12/24 17:33 Temperature 36.6 C 11/12/24 17:33 Pulse 92 H 11/12/24 17:33 Respiratory Rate 16 11/12/24 17:33 Blood Pressure 132/77 11/12/24 17:33 Pulse Oximetry 98 11/12/24 17:33 Pain Level 6 11/12/24 18:06 Procedure Fracture Reduction Fracture #1: Date of Procedure: 11/12/24 Time of procedure: 22:35 Provider that performed the procedure: Vidhya Cota Standard Time Out Performed: Yes Patient Consented: Written Ultrasound: Not used Side: right Fracture Reduction Location: tibia (and fibular, bimalleolar) Sedation administered by provider performing procedure: Yes Technique: direct manipulation and traction/counter-traction Post Reduction X-rays Demonstrate: acceptable reduction Post-Reduction Neuro Exam: intact Post-Reduction Vascular Exam: intact Splint Applied: Yes Patient Tolerated Procedure: well and no complications Procedural Sedation Date of Procedure: 11/12/24 Time of procedure: 21:40 Provider that performed the procedure: Vidhya Cota Indication: Pain control and Procedural optimization Patient Consented: Written Sedation Given: Ketamine Amount of sedation(mg): 75 Preparation: monitoring tech applied, pulse oximeter, capnometry used, supplemental O2 applied, suction/airway equipment at bedside and IV secured Time of Last PO Intake: 17:00 Medical Decision Making Quality:SDOH Health Related Social Needs: No Data to Display PFSH All Active Problems (Updated 11/12/24 @ 22:33 by Vidhya Cota MD) Closed trimalleolar fracture of right ankle (Acute) Foreign body in eye (Acute) Welders' keratitis of both eyes (Acute) Medical History (Updated 11/12/24 @ 22:33 by Vidhya Cota MD) ADHD (attention deficit hyperactivity disorder) Surgical History Circumcision Family History Mother Mental disorder anxiety/depression Father Substance abuse Alcohol abuse hx of Mental disorder anxiety/depression Stroke Asthma outgrown Other No problems noted. Social History Smoking/Tobacco Use Status: Former Tobacco Use Smoking risk assessment performed?: Yes Alcohol Intake: never Drug use: Daily Substance use type: marijuana Housing: house Do you feel safe at home: Yes Do you feel safe in your relationship?: Yes
[2024-11-12] MEDS: Ketamine 500 MG/10 ML VIAL 75 MG IVP (21:53)
--- NOTE | 2024-11-12 21:55 | RESPIRATORY ---
RT present on conscious sedation procedure with rescue breathing equipments at bedside. No complication to ventilation, pt. maintained stable vital signs on RA, including etCO2 ranging from 30-45 through out the conscious sedation procedure. MD Notified before RT left after pt. awaken.
[2024-11-12 21:58] VITALS: BP 154/96; PULSE 78; RESP 17; O2SAT 96
[2024-11-12 22:01] VITALS: BP 132/83; PULSE 75; PULSE 85; RESP 24; O2SAT 98
--- NOTE | 2024-11-12 22:13 | DI.RAD_ITS ---
Exam(s) XR ANKLE RT 2V EXAM: XR ANKLE RT 2V INDICATION: Post reduction. COMPARISON: CR XR ANKLE RT COMPLETE from 11/11/2024 CR XR ANKLE RT COMPLETE from 11/11/2024 CR XR ANKLE RT 2V from 11/12/2024 CR,XR XR ANKLE RT COMPLETE from 11/12/2024 TECHNIQUE: 2D digital imaging was performed. Two views. FINDINGS: A posterior splint is in place. There is improved alignment of the trimalleolar fracture, similar to the fluoroscopic exam. DATA REPOSITORY: RADIATION DOSE DELIVERED:
--- NOTE | 2024-11-12 22:15 | NUR.NOTE ---
Nursing Note: Report and transfer of care given to Nadira Garcia RN at this time.
--- NOTE | 2024-11-12 22:21 | DI.VRAD_ITS ---
PROCEDURE INFORMATION: Exam: XR Right Ankle Exam date and time: 11/12/2024 10:11 PM Age: 24 years old Clinical indication: Other: Post reduction TECHNIQUE: Imaging protocol: Radiologic exam of the right ankle. Views: 1 or 2 views. COMPARISON: CR XR ANKLE RT 2V 11/12/2024 9:36 PM FINDINGS: Bones/joints: Again seen is trimalleolar fracture, the fracture fragments are in near anatomical alignment after reduction. There is mild widening of the ankle mortise, however this is improved postreduction with approximately 6 mm of medial displacement of the tibia from the talus. Soft tissues: Severe soft tissue edema with overlying cast again seen. IMPRESSION: 1. Again seen is trimalleolar fracture, the fracture fragments are in near anatomical alignment after reduction. There is mild widening of the ankle mortise, however this is improved postreduction with approximately 6 mm of medial displacement of the tibia from the talus. 2. Severe soft tissue edema with overlying cast again seen. Dictated and Authenticated by: Kaci Benson MD. Ordering:ANGLE Almanza MD
[2024-11-12] MEDS: MORPHine IR 15 MG TAB, 4 TABS/BTL PO (22:49)
[2024-11-12 22:50] VITALS: BP 132/84; PULSE 67; RESP 15; TEMP 37; O2SAT 100
== END 2024-11-12 22:50 | disposition home or self-care (01) ==
PROVIDERS: Emergency Provider Emergency Medicine
DX: S82.851D Displaced trimalleolar fracture of right lower leg, subsequent encounter for closed fracture with routine healing (principal); Z87.891 Personal history of nicotine dependence; X58.XXXD Exposure to other specified factors, subsequent encounter
CPT/HCPCS: 76000; 99283; 73600; 73610

== ENCOUNTER 2024-11-15 15:30 | Outpatient (CLI) | payer MEDICAID, SELFPAY ==
--- NOTE | 2024-11-15 13:30 | DI.RAD_ITS ---
Exam(s) XR ANKLE RT COMPLETE EXAM: XR ANKLE RT COMPLETE CLINICAL HISTORY: post-reduction. TECHNIQUE: 2D digital imaging was performed. Three views. COMPARISON: CR,XR XR ANKLE RT 2V from 11/12/2024 FINDINGS: Cast material is in place. There has been further improvement in pre in the alignment of the trimall eolar fracture. The amount of ankle mortise widening is decreased. The medial malleolar fracture fr agment is in near atomic position. Posterior malleolar fracture is nondisplaced. There is slight di splacement of the lateral malleolar fracture. IMPRESSION: Improved alignment intra trimalleolar fracture. DATA REPOSITORY: RADIATION DOSE DELIVERED:
== END 2024-11-15 15:31 | disposition home or self-care (01) ==
LOC: DIORS 15:30
PROVIDERS: Visit Provider Physician Assistant
DX: S82.851D Displaced trimalleolar fracture of right lower leg, subsequent encounter for closed fracture with routine healing (principal); X58.XXXD Exposure to other specified factors, subsequent encounter
CPT/HCPCS: 73610

== ENCOUNTER 2024-11-15 15:39 | Emergency (ER) | payer MEDICAID, SELFPAY ==
[2024-11-15 15:42] VITALS: BP 137/73; PULSE 77; RESP 18; TEMP 36.4; O2SAT 99
--- NOTE | 2024-11-15 15:45 | DI.RAD_ITS ---
Exam(s) XR ANKLE RT COMPLETE EXAM: XR ANKLE RT COMPLETE CLINICAL HISTORY: Hx fx, fell today. TECHNIQUE: 2D digital imaging was performed. Three views. COMPARISON: CR XR ANKLE RT COMPLETE from 11/15/2024 FINDINGS: The posterior splint remains in place. There has been no change in the alignment of the trimalleolar fracture. No new abnormalities are identified. IMPRESSION: Stable fracture alignment. DATA REPOSITORY: RADIATION DOSE DELIVERED:
--- NOTE | 2024-11-15 16:01 | W.ED.GENAD ---
Discharge Plan Disposition Patient Disposition: Home Condition: Stable Discharge Details Clinical Impression: Fall (on) (from) other stairs and steps, initial encounter, Aftercare for cast or splint check or change Primary Care Provider: None,None ED Provider: Trina Tello Home Meds and New Rx's Prescriptions: No Action ibuprofen 600 mg tablet 800 mg PO QID PRN (Reason: pain) morphine 15 mg tablet 15 mg PO Q12H PRN oxycodone 5 mg tablet 5 mg PO Q1-4H PRN Discharge Instructions Instructions: How to care for a splint Additional Instructions: The x-rays today look good. The ankle is still well aligned. Dr. Matta was able to look at the images and does not recommend any further treatment. Please be careful not to fall again, keep it elevated above the level of your heart while sitting or laying down, Tylenol ibuprofen. Please keep your appointment on as previously discussed and scheduled. Thank you for allowing us to care for you today. Referrals: Ramsey Matta MD [ [facility] STAFF PHYSICIAN] - 2 days Discharge Data Discharge Date/Time-TO BE ENTERED AT DEPARTURE: 11/15/24 16:36 HPI General Mode of arrival: wheelchair. Date/Time Provider Initiated Documentation: 11/15/24 15:46. Limitations to Documentation: no limitations. Information obtained by: patient, RN notes reviewed and old records reviewed. HPI Narrative: 24-year-old male presents to the ER with a chief complaint of right heel and ankle pain status post a slip and fall. Patient reports that he was just seen orthopedic clinic for splinting of a trimalleolar fracture that is due for surgery in 48 hours approximately. Reports he was coming up some stairs slipped on the ice and put some weight on his heel. He reports that he just wants to make sure everything is okay. He does have some discomfort and pressure. Distal CMS is intact he is able to wiggle his toes without difficulty. Does have a past medical history of ADHD. He appears in no acute distress. Related Data Home Medications ?Medication ?Instructions ?Recorded ?Confirmed ibuprofen 600 mg tablet 800 mg PO QID PRN pain 01/06/23 11/15/24 oxycodone 5 mg tablet 5 mg PO Q1-4H PRN 11/12/24 11/15/24 morphine 15 mg immediate release 15 mg PO Q12H PRN 11/15/24 11/15/24 tablet Allergies Allergy/AdvReac Type Severity Reaction Status Date / Time Penicillins Allergy Severe Anaphylaxis Unverified 11/15/24 15:46 amoxicillin (Amoxicillin) Allergy Mild RASH Unverified 11/15/24 15:46 ketamine AdvReac Intermediate Agitation Verified 11/15/24 15:46 General Stated Complaint: Orthopedic ISABELLA: 3 Review of Systems Musculoskeletal Musculoskeletal: Reports as per HPI and Reports arthralgias Exam Extrem General: normal to inspection Right lower extremity: normal to inspection (Is in a posterior long-leg splint.) Course Vital Signs Vital signs: Vital Signs Temperature 36.4 C 11/15/24 15:42 Pulse 77 11/15/24 15:42 Respiratory Rate 18 11/15/24 15:42 Blood Pressure 137/73 11/15/24 15:42 Pulse Oximetry 99 11/15/24 15:42 Temperature 36.4 C 11/15/24 15:42 Temperature Source Temporal Artery Scan 11/15/24 15:42 Pulse 77 11/15/24 15:42 Respiratory Rate 18 11/15/24 15:42 Blood Pressure 137/73 11/15/24 15:42 Blood Pressure Position Supine 11/15/24 15:42 Pulse Oximetry 99 11/15/24 15:42 Oxygen Delivery Method Room Air 11/15/24 15:42 Oxygen Flow Rate 0 11/15/24 15:42 Medical Decision Making 24-year-old male presents to the ER with a chief complaint of right heel and ankle pain status post a slip and fall. Patient reports that he was just seen orthopedic clinic for splinting of a trimalleolar fracture that is due for surgery in 48 hours approximately. Reports he was coming up some stairs slipped on the ice and put some weight on his heel. He reports that he just wants to make sure everything is okay. He does have some discomfort and pressure. Distal CMS is intact he is able to wiggle his toes without difficulty. Does have a past medical history of ADHD. He appears in no acute distress. X-ray right ankle ordered. 162: Spoke with Dr. Matta she was able to personally review the images. He does not recommend any further intervention at this time ankle is still well reduced. Splint is still intact. Will discussed elevation and protection and to keep his appointment for . X-rays show continuous alignment of the fracture and ankle. Discussed home care with patient who verbalized understanding. This text was generated using Blabroomation system, please disregard any oddities of phrase or misspellings. Medical Records Medical records reviewed: Yes I reviewed the patient's medical records. Quality:SDOH Health Related Social Needs: No Data to Display PFSH All Active Problems (Updated 11/15/24 @ 16:28 by Trina Tello NP) Aftercare for cast or splint check or change (Acute) Fall (on) (from) other stairs and steps, initial encounter (Acute) Closed trimalleolar fracture of right ankle (Acute 11/11/24) Foreign body in eye (Acute) Welders' keratitis of both eyes (Acute) Medical History (Updated 11/15/24 @ 16:28 by Trina Tello NP) ADHD (attention deficit hyperactivity disorder) Surgical History Circumcision Family History Mother Mental disorder anxiety/depression Father Substance abuse Alcohol abuse hx of Mental disorder anxiety/depression Stroke Asthma outgrown Other No problems noted. Social History Smoking/Tobacco Use Status: Former Tobacco Use Smoking risk assessment performed?: Yes Alcohol Intake: never Drug use: Daily Substance use type: marijuana Housing: house Do you feel safe at home: Yes Do you feel safe in your relationship?: Yes
== END 2024-11-15 16:36 | disposition home or self-care (01) ==
PROVIDERS: Emergency Provider Registered Nurse Emergency
DX: M25.571 Pain in right ankle and joints of right foot (principal); Z47.89 Encounter for other orthopedic aftercare; W00.0XXA Fall on same level due to ice and snow, initial encounter; S82.851D Displaced trimalleolar fracture of right lower leg, subsequent encounter for closed fracture with routine healing
CPT/HCPCS: 99283; 73610

== ENCOUNTER 2024-11-17 06:13 | Day surgery (SDC) | payer MEDICAID, SELFPAY ==
[2024-11-17] VITALS (22 sets, daily range): BP systolic 91–136; BP diastolic 36–67; PULSE 62–78; RESP 12–22; TEMP 36.3–36.8; O2SAT 95–100; BMI 23.6
--- NOTE | 2024-11-17 06:11 | W.ANESPRE ---
General Info Date of Service Date Performed: 11/17/24 Height: 5 ft 10 in Weight: 74.843 kg Body Mass Index (BMI): 23.6 Surgical Procedure: Operation Date: 11/17/24 07:40 Proposed Procedure Side Surgeon p Ankle ORIF Right Ramsey Matta MD Meds Allergies and Home Medications Allergies Allergy/AdvReac Type Severity Reaction Status Date / Time Penicillins Allergy Severe Anaphylaxis Verified 11/16/24 10:30 amoxicillin (Amoxicillin) Allergy Mild RASH Verified 11/16/24 10:30 ketamine AdvReac Intermediate Agitation Verified 11/16/24 10:30 Home Medication ?Medication ?Instructions ?Recorded ibuprofen 600 mg tablet 800 mg PO QID PRN pain 01/06/23 oxycodone 5 mg tablet 5 mg PO Q1-4H PRN 11/12/24 morphine 15 mg immediate release 15 mg PO Q12H PRN 11/15/24 tablet acetaminophen 500 mg capsule 1,000 mg PO Q6H PRN 11/16/24 Current Visit Medications: Current Medications Generic Name Dose Route Start Last Admin Trade Name Linwoodq PRN Reason Stop Dose Admin Ringer's Solution 1,000 mls @ 30 mls/hr 11/17/24 06:00 IV 11/17/24 23:59 INFUSION RANDY Cefazolin Sodium/Dextrose 2 gm in 50 mls @ 100 mls/hr 11/17/24 06:00 Ancef Duplex IVPB 11/17/24 23:59 PREOP RANDY IV Miscellaneous Supplies 1 each 11/17/24 06:00 Iv Access IV 11/17/24 23:59 DIRECTED RANDY Sodium Chloride 0 ml 11/17/24 06:00 Normal Saline Flush 10 Ml Syr IV 11/17/24 23:59 PRN PRN Sodium Chloride 0 ml 11/17/24 06:00 Normal Saline 10 Ml Vial IJ 11/17/24 23:59 DIRECTED PRN Sterile Water 0 ml 11/17/24 06:00 Water,Injection,Sterile 10 Ml Vial IJ 11/17/24 23:59 DIRECTED PRN PFSH Active Problems Active Problems: Problem Status Onset Code Aftercare for cast or splint check or change Acute Z47.89 Fall (on) (from) other stairs and steps, initial encounter Acute W10.8XXA Closed trimalleolar fracture of right ankle Acute 11/11/24 S82.851A Foreign body in eye Acute T15.90XA Welders' keratitis of both eyes Acute H16.133 Medical History Medical History ADHD (attention deficit hyperactivity disorder) Surgical History Surgical History Circumcision Tobacco Smoking/Tobacco Use Status: Current-Occasional Tobacco Type: smokeless tobacco Alcohol Alcohol Intake: never Substance Use Substance use: Daily Substance use type: marijuana Vital Signs and Lab Results Lab Results Blood Type / Crossmatch: No Data to Display Complete Blood Count: No Data to Display Complete Metabolic Panel: No Data to Display Liver Function Panel: No Data to Display Coagulation Panel: No Data to Display Cardiac Panel: No Data to Display Arterial Blood Gas: No Data to Display Venous Blood Gas: No Data to Display Pancreas Panel: No Data to Display Thyroid Panel: No Data to Display Infectious Disease: No Data to Display Blood Cultures: No Data to Display Toxicology Panel: No Data to Display Anesthesia Assessment and Plan Anesthesia History Personal History: No History of General Anesthesia Family History: Family History Unknown Exercise Tolerance Exercise Tolerance: Metabolic Equivalents>4 Cardiac & Pulmonary Exam Cardiac Exam: Normal S1/S2 Heart Sounds Pulmonary Exam: Clear Bilateral Breath Sounds Implantable Cardiac Device Does patient have a Pacemaker or an ICD?: No Airway Exam Known Difficult Airway: No Mallampati Class: 3 Mouth Opening: Narrow (< 3cm) Thyromental Distance: Greater than 3 cm Neck Range of Motion: Full ROM Neck Circumference: Normal Teeth Condition: Normal Dentition ASA Classification ASA Score: ASA 2 Emergency Case?: No NPO Status NPO Status: NPO Clears >2 hours, Solids >8 hours Anesthesia Plan Resuscitation Status: Full Code Anesthesia Technique: General Anesthesia Airway Planned: Endotracheal Tube Pain Management: Surgeon and patient request nerve block Monitors Used: Standard Monitors Preoperative Comments:: 24 yo male who fell down the stairs and sustained an ankle fracture here today for ankle ORIF. has had intermittent tingling in toes which changes with foot elevation, it is not consistent. Sig PMHx: ADHD. chewing tobacco (none today), daily cannabis. Discussed risks, benefits of regional anesthesia, wishes to proceed with it.
[2024-11-17] MEDS: Lactated Ringers 1,000 ML 30 ML IV (06:56)
--- NOTE | 2024-11-17 07:08 | PDOC.DSDIS_ITS ---
Date of service: 11/17/24 Discharge Plan Disposition Patient Disposition: Home Discharge Details Attending Provider: Ramsey Matta Primary Care Provider: None,None Home Meds and New Rx's Prescriptions: New naproxen 250 mg tablet 250 - 500 mg PO BID PRN (Reason: Moderate pain) Qty: 40 0RF aspirin 81 mg tablet,delayed release (DR/EC) 81 mg PO BID 30 Days Qty: 60 0RF oxycodone 5 mg tablet 5 - 10 mg PO Q4H PRN (Reason: Moderate to severe pain) Qty: 18 0RF Continued ibuprofen 600 mg tablet 800 mg PO QID PRN (Reason: pain) morphine 15 mg tablet 15 mg PO Q12H PRN oxycodone 5 mg tablet 5 mg PO Q1-4H PRN acetaminophen 500 mg capsule 1,000 mg PO Q6H PRN Discharge Instructions Additional Instructions: Surgery: Right ankle open reduction internal fixation Activity: Nonweightbearing right ankle with crutches. May rest splint gently on ground while standing. Strict elevation to minimize swelling and discomfort. Wiggle toes to improve circulation and prevent stiffness. Physical therapy prescription will be provided on follow-up. Prescriptions: Aspirin 81 mg take 1 every 12 hours to prevent a blood clot for 30 days, starting tomorrow Naproxen 250 mg take 1-2 every 12 hours with a meal as needed for moderate pain Oxycodone 5 mg take 1-2 every 4-6 hours as needed for severe pain You may use [id number] Tylenol (acetaminophen) as needed for mild pain. These pain medications may be taken all at once or in different combinations as needed. Also, recommend Colace (docusate) as a stool softener as surgery and pain medicine cause constipation. You may try [id number] diphenhydramine (Benadryl) 25-50 mg nightly as a sleep aid Dressings: Leave splint and dressing in place until follow-up. Keep clean and dry at all times. Follow-up: 10-[address] Matta You may take off the leg compression stockings this evening at home. You may also leave them on a few days longer if you have a history of leg swelling or edema. Let us know right away if you develop any redness, drainage, fevers, chest pain, or trouble breathing. Do not drink alcohol or drive for at least 24 hours after anesthesia. Please call the office during business hours with any questions or concerns. Stand Alone Forms: Anesthesia Discharge Inst., Honey.Nerve Block Instructions, Stephen Abdalla ([facility]) Referrals: Ramsey Matta MD [ [facility] STAFF PHYSICIAN] - 11/29/24 10:00 am Discharge Orders Discharge Orders: Discharge Order (Routine); Ordered 11/17/24 Ordered By: Ra Whitney DS: Diagnosis Discharge Diagnosis (1) Closed trimalleolar fracture of right ankle: Status: Acute
--- NOTE | 2024-11-17 07:18 | ROE_ITS ---
Operative Note Operative Note PRE-OP DIAGNOSIS: Right trimalleolar ankle fracture dislocation POST-OP DIAGNOSIS: same PROCEDURE: Right trimalleolar ankle fracture ORIF, medial & lateral, CPT #45440 SURGEON: Ramsey Matta MANAGER LATIN: Ra Whitney ANESTHESIA TYPE: Local By Surgeon, General LMA/ETT and Primary Nerve Block Refer to Anesthesia Record ESTIMATED BLOOD LOSS: 10 COMPLICATIONS: None Patient was transported to: PACU Patient's condition: stable Implants: Synthes 6-hole 1/3 tubular plate with 2x distal 4.0 mm cancellous screws, 3x proximal 3.5mm cortex screws, 1x 3.5mm lag screw, and 1x 4.0 mm partially threa ded cancellous medial screw Indications: Please see complete medical record for details. Findings: Stable syndesmosis/ankle mortise after reduction and fixation. Very small posterior malleolus fracture indirectly well aligned. Procedure Description: In the operating room, general anesthesia was induced. The patient was positioned supine on the operating room table. All bony prominences were well- padded. Preoperative antibiotics were administered. The right ankle was prepped and draped in the usual sterile fashion. The correct patient, procedure, and side of the procedure were all verified prior to incision. Local anesthesia was infiltrated about the planned medial and lateral surgical sites. Direct lateral approach was taken to the distal fibula fracture taking care to raise full-thickness flaps while protecting neurovascular structures. The periosteum was elevated fracture site exposed cleansed of debris and soft tissue was removed from the margins. There was a nice long fracture which was aligned anatomically and clamped in place. An anterior to posterior lag screw was then placed with excellent strength. Various plates were considered laterally, but considering the strong bone and lag screw with a 6 hole plate was chosen in order to avoid plate being too prominent unnecessarily distally. It was centered on the posterior lateral aspect of the distal fibula and secured proximal to the fracture with a bicortical cortex screw and distally with a nearly bicortical cancellous screw. The remaining distal screw was drilled with fluoroscopic assistance to optimize length and filled with a nearly bicortical cancellous screw in remaining 2 holes proximally were drilled and filled with bicortical cortex screw with the most proximal screw divergent from the construct for added length. The fibula visually had excellent anatomic reduction and secure fixation. The medial malleolus was reasonably aligned. A small to medium curvilinear medial incision was made exposing the medial malleolus fracture which had inter posed tissue not unexpected that was reflected some removed and then the fracture was clamped and Pelle's which was slightly more challenging as it was a small and distal mostly anterior tip fracture. It was only amenable to a single drill hole and screw which was placed with fluoroscopic assistance and nice fixation strength with the being well reduced and secured. The posterior malleolus was inspected now quite small and well aligned. External rotation stress showed stable fixation syndesmosis and ankle mortise. Medial and lateral incisions were copiously irrigated with normal saline. S ubcutaneous tissue was closed 2-0 Monocryl buried erupted. Skin was closed using 3-0 nylon horizontal mattress. Incisions were covered with Xeroform and a posterior medial ankle fracture blister was unroofed cleansed and covered with Xeroform as well. Gauze ABD pad and sterile soft roll wrapped around extremity, which was then placed in a well-padded and molded AO short leg plaster splint. The patient awoke from anesthesia without complication and was transferred to the recovery room in a stable condition. Date of Procedure: 11/17/24
[2024-11-17] MEDS: ceFAZolin 2 GM/50 ML BAG IVPB (07:30)
--- NOTE | 2024-11-17 07:53 | W.ANESNERVE ---
Nerve Block Single Injection Procedure Date and Time Date Performed: 11/17/24 Procedure Start: 07:10 Location Where Procedure Performed Procedure Location: Day Surgery Unit Reason Performed: Postoperative Analgesia Requesting Provider: Ramsey Matta Timeout Performed Timeout Performed: Yes Monitoring Used ECG, Blood Pressure and SpO2 Sterility Sterility: Hand Hygiene, Surgical Cap, Surgical Mask, Sterile Gloves and Chlorhexidine Sedation Given During Procedure Sedation Given (Indicate Dose Given): Versed IV Dose:: 3 mg Patient Mental Status Patient Mental Status: Sedate with meaningful communication Nerve Block 1st Nerve Block: Laterality: Right Block Type: Popliteal Sciatic Ultrasound Image Saved?: Yes Needle / Catheter Used: 100mm SonoPlex II Local Anesthetic Bolus (Indicate Dose Given): Lidocaine used for local infiltration of skin and Bupivacaine 0.375% Dose:: 20 mL Additives (Indicate Dose Given): None Ultrasound: Sterile probe cover and gel used Nerve Stimulator: Supplement to Ultrasound use and No twitch or parasthesia noted < 0.5 mA Paresthesia: None Procedure Tolerated: No Complications Procedure Outcome: Successful Performed By: Juan Riggs 2nd Nerve Block: Laterality: Right Block Type: Adductor Canal Ultrasound Image Saved?: Yes Needle / Catheter Used: 100mm SonoPlex II Local Anesthetic Bolus (Indicate Dose Given): Lidocaine used for local infiltration of skin and Bupivacaine 0.375% Dose:: 10 mL Additives (Indicate Dose Given): None Ultrasound: Sterile probe cover and gel used Nerve Stimulator: Supplement to Ultrasound use and No twitch or parasthesia noted < 0.5 mA Paresthesia: None Procedure Tolerated: No Complications Procedure Outcome: Successful Procedure Comment: With 1.5 in 25 ga local needle did have a muscle twitch on the way in, main needle path directed away from where his twitch was felt with no further response. Performed By: Juan Riggs
[2024-11-17] MEDS: Bupivacaine 0.25% Pres-Free W/EPI 30 ML VIAL (08:36)
--- NOTE | 2024-11-17 09:20 | DI.RAD_ITS ---
Exam(s) XR ANKLE RT 2V EXAM: XR ANKLE RT 2V CLINICAL HISTORY: RIGHT ANKLE FRACTURE. TECHNIQUE: 2D digital imaging was performed. COMPARISON: No exams were available for comparison FINDINGS: Fluoroscopy was provided intraoperatively during ORIF right ankle. See procedure report for details. Total fluoroscopy time 25 seconds IMPRESSION: Radiation exposure index/cumulative dose:Marichuyr=0.6187 mGy DATA REPOSITORY: RADIATION DOSE DELIVERED:
--- NOTE | 2024-11-17 11:17 | W.ANESPOSTOP ---
Postoperative Evaluation Date, Time and Location Date Performed: 11/17/24 Time Performed: 11:17 Patient Location: Day Surgery Unit Vital Signs Most Recent Imported Vital Signs: Most Recent Vital Signs Temp Pulse Resp BP Pulse Ox 36.3 C L 69 18 110/52 L 99 11/17/24 11:14 11/17/24 11:14 11/17/24 11:14 11/17/24 11:14 11/17/24 11:14 Pain Score Most Recent Pain Score: Most Recent Pain Score Pain Level 0 11/17/24 11:14 Assessment Mental Status: Awake (Alert & Oriented to Patient Baseline) Airway and Respiratory Function: Patent airway with normal (patient baseline) respiratory exam Cardiovascular Function: Hemodynamically Stable Hydration Status: Adequately Hydrated Nausea & Vomiting: No Nausea or Vomiting Pain: Pt. Denies Any Pain Peripheral Nerve Block: Regional nerve block not resolved at time of post operative discharge
== END 2024-11-17 11:30 | disposition home or self-care (01) ==
PROVIDERS: Visit Provider Student in an Organized Health Care Education/Training Program
PROC: (CPT 27822; principal; 2024-11-17 07:30)
DX: S82.851A Displaced trimalleolar fracture of right lower leg, initial encounter for closed fracture (principal); X58.XXXA Exposure to other specified factors, initial encounter; G89.18 Other acute postprocedural pain
CPT/HCPCS: 27822; 64445; 64447; 64450; 76000; 73600; J0131; J0665; J0690; J1100; J1805; J1885; J2250; J2371; J2405; J2704; J3475

== ENCOUNTER 2024-11-29 15:02 | Outpatient (CLI) | payer MEDICAID, SELFPAY ==
--- NOTE | 2024-11-29 10:00 | DI.RAD_ITS ---
Exam(s) XR ANKLE RT COMPLETE EXAM: XR ANKLE RT COMPLETE CLINICAL HISTORY: F/U RIGHT ANKLE ORIF. TECHNIQUE: 2D digital imaging was performed. Three views. COMPARISON: CR XR ANKLE RT COMPLETE from 11/15/2024 XA XR ANKLE RT 2V from 11/17/2024 FINDINGS: BONES: There has been no change in the alignment of the hardware in the medial and lateral malleoli c ompared to intraoperative images. The fracture alignment is unchanged. No bony destructive lesion i s seen. JOINTS: The ankle mortise is normally aligned. The ankle joint space is maintained. SOFT TISSUE: Mild swelling. IMPRESSION: Stable fracture and hardware alignment. DATA REPOSITORY: RADIATION DOSE DELIVERED:
== END 2024-11-29 15:03 | disposition home or self-care (01) ==
LOC: DIORS 15:04
PROVIDERS: Visit Provider Student in an Organized Health Care Education/Training Program
DX: S82.851D Displaced trimalleolar fracture of right lower leg, subsequent encounter for closed fracture with routine healing (principal); X58.XXXD Exposure to other specified factors, subsequent encounter
CPT/HCPCS: 73610

== ENCOUNTER 2024-12-27 14:49 | Outpatient (CLI) | payer MEDICAID, SELFPAY ==
--- NOTE | 2024-12-27 10:00 | DI.RAD_ITS ---
Exam(s) XR ANKLE RT COMPLETE EXAM: XR ANKLE RT COMPLETE CLINICAL HISTORY: F/U RIGHT ANKLE ORIF. TECHNIQUE: 2D digital imaging was performed. Three views. COMPARISON: CR XR ANKLE RT COMPLETE from 11/29/2024 FINDINGS: BONES: Stable hardware alignment continued fracture healing. No bony destructive lesion is seen. JOINTS: The ankle mortise is normally aligned. SOFT TISSUE: Normal. IMPRESSION: Stable fracture and hardware alignment. DATA REPOSITORY: RADIATION DOSE DELIVERED:
== END 2024-12-27 14:50 | disposition home or self-care (01) ==
LOC: DIORS 14:49
PROVIDERS: Visit Provider Physician Assistant
DX: S82.851D Displaced trimalleolar fracture of right lower leg, subsequent encounter for closed fracture with routine healing (principal); X58.XXXD Exposure to other specified factors, subsequent encounter
CPT/HCPCS: 73610

== ENCOUNTER 2025-01-24 11:42 | Outpatient (CLI) | payer MEDICAID, SELFPAY ==
--- NOTE | 2025-01-24 09:45 | DI.RAD_ITS ---
Exam(s) XR ANKLE RT COMPLETE EXAM: XR ANKLE RT COMPLETE CLINICAL HISTORY: F/U FRACTURE. TECHNIQUE: 2D digital imaging was performed. Three images were obtained. AP, lateral and oblique vi ews were obtained. COMPARISON: CR XR ANKLE RT COMPLETE from 11/29/2024 CR XR ANKLE RT COMPLETE from 12/27/2024 FINDINGS: BONES: There are stable post operative changes present. The fractures appear mostly healed. On the lateral view, there is a question of a residual fracture line anteriorly involving the medial malleol us. No new fracture or dislocation. JOINTS: The joint spaces are well maintained. SOFT TISSUE: Normal. IMPRESSION: Stable postoperative changes. DATA REPOSITORY: RADIATION DOSE DELIVERED:
== END 2025-01-24 11:43 | disposition home or self-care (01) ==
LOC: DIORS 11:42
PROVIDERS: Visit Provider Student in an Organized Health Care Education/Training Program
DX: S82.851D Displaced trimalleolar fracture of right lower leg, subsequent encounter for closed fracture with routine healing (principal); X58.XXXD Exposure to other specified factors, subsequent encounter
CPT/HCPCS: 73610

== ENCOUNTER 2025-02-18 00:52 | Emergency (ER) | payer MEDICAID, SELFPAY ==
[2025-02-18 01:05] VITALS: BP 133/58; PULSE 93; TEMP 36.4; O2SAT 98
--- NOTE | 2025-02-18 02:16 | ED.GENADUL_ITS ---
Discharge Plan Disposition Patient Disposition: Home Condition: Good Discharge Details Clinical Impression: Laceration of upper extremity Primary Care Provider: None,None ED Provider: Tanvi Sow Home Meds and New Rx's Prescriptions: No Action No Known Home Meds Discharge Instructions Instructions: Laceration Repair With Stitches ED Additional Instructions: Tylenol and ibuprofen over the counter for pain; follow the directions on the bottle. Stitches out in 7 days; primary care, urgent care, or in the ED. Return to the emergency department for new or worsening symptoms including severe pain, thick green or white discharge from your cut, fevers, difficulty moving your hand, numbness or tingling in your arm or hand, or if you have any other concerns. HPI General Mode of arrival: ambulatory . Date/Time Provider Initiated Documentation: 02/18/25 02:08 . Limitations to Documentation: no limitations . Information obtained by: patient . HPI Narrative: 24yo previously healthy male right handed male presenting with laceration to right palm and wrist. Just prior to arrival was reaching into the back of his truck and cut his hand on chainsaw (not running). Bleeding controlled with pressure. No numbness, tingling, or weakness to hand. No other injuries. Otherwise in his usual state of health. Related Data Home Medications ?Medication ?Instructions ?Recorded ?Confirmed Unknown [No Known Home Meds] 02/18/25 02/18/25 Allergies Allergy/AdvReac Type Severity Reaction Status Date / Time Penicillins Allergy Severe Anaphylaxis Verified 02/18/25 01:04 amoxicillin (Amoxicillin) Allergy Mild RASH Verified 02/18/25 01:04 ketamine AdvReac Intermediate Agitation Verified 02/18/25 01:04 General Stated Complaint: Laceration ISABELLA: 3 Review of Systems Narrative: see HPI Exam Narrative Exam Narrative: General: Alert, well appearing, well nourished, in no acute distress. Head: Normocephalic, atraumatic Neck: Trachea midline, ?Neck supple. Resp: No respiratory distress. Speaking in full sentences. Abd: ?Non-distended, Neurologic: GCS 15. ? Moves all extremities freely against gravity Extremities: ?Right hand with 2cm linear shallow laceration to pad of left thumb, hemostatic, thoroughly explored and no muscular or tendon involvement. Radial surface of wrist/distal thumb with 1.5cm linear laceration, shallow, hemostatic, no evident vascular involvement and no muscular or tendon involvement. Does not overly radial artery. Radial pulse intact and symmetric with left. Distal sensation, pulses, capillary refill, and strength intact throughout hand and all digits. Course Vital Signs Vital signs: Vital Signs Temperature 36.4 C 02/18/25 01:05 Pulse 93 H 02/18/25 01:05 Blood Pressure 133/58 L 02/18/25 01:05 Pulse Oximetry 98 02/18/25 01:05 Temperature 36.4 C 02/18/25 01:05 Temperature Source Temporal Artery Scan 02/18/25 01:05 Pulse 93 H 02/18/25 01:05 Blood Pressure 133/58 L 02/18/25 01:05 Pulse Oximetry 98 02/18/25 01:05 Oxygen Delivery Method Room Air 02/18/25 01:05 Oxygen Flow Rate 0 02/18/25 01:05 Pain Level 10 02/18/25 01:05 Procedure Laceration Laceration 1: Date of Procedure: 02/18/25 Time of procedure: 02:45 Provider that performed the procedure: Tanvi Sow Patient Consented: Verbally Site: hand Side (If applicable): right Description: linear Depth: simple, single layer Local anesthetic: Lidocaine 2% Amount of anesthesia used (mL): 3 Pre-repair:: wound explored, irrigated extensively and deep structures intact Skin layer closed with: nylon Suture size: 5-0 Number of sutures:: 4 Technique: simple, interrupted Laceration 2: Date of Procedure: 02/18/25 Time of procedure: 02:45 Provider that performed the procedure: Tanvi Sow Patient Consented: Verbally Site: upper extremity Side (If applicable): right Description: linear Depth: simple, single layer Local anesthetic: Lidocaine 2% Amount of anesthesia used (mL): 4 Pre-repair:: wound explored, irrigated extensively and deep structures intact Skin layer closed with: nylon Suture size: 6-0 Number of sutures:: 4 Medical Decision Making 24yo previously healthy male right handed male presenting with laceration to right palm and wrist after reaching into the back of his truck and cut his hand on chainsaw (not running). Vitals signs reassuring on arrival. Neurovascular intact. Right hand with 2cm linear shallow laceration to pad of left thumb, hemostatic, thoroughly explored and no muscular or tendon involvement. Radial surface of wrist with 1.5cm linear laceration, shallow, hemostatic, no evident vascular involvement and no musclular or tendon involvement. Radial pulse intact and symmetric with left. No bony tenderness including no scaphoid tenderness. No indication for XR, CT or vascular imaging or bloodwork. Lacerations repaired and tetanus booster given. Discharged home; discharge instructions and return precautions were reviewed with patient who verbalized understanding. All questions were answered and he is in full agreement with the plan. Quality:SDOH Health Related Social Needs: No Data to Display PFSH All Active Problems (Updated 02/18/25 @ 03:07 by Tanvi Sow MD) Laceration of upper extremity (Acute) Foreign body in eye (Acute) Welders' keratitis of both eyes (Acute) Medical History (Updated 02/18/25 @ 03:07 by Tanvi Sow MD) ADHD (attention deficit hyperactivity disorder) Surgical History Circumcision Family History Mother Mental disorder anxiety/depression Father Substance abuse Alcohol abuse hx of Mental disorder anxiety/depression Stroke Asthma outgrown Other No problems noted. Social History Smoking/Tobacco Use Status: Current-Occasional Tobacco Type: smokeless tobacco Smoking risk assessment performed?: Yes Alcohol Intake: never Drug use: Daily Substance use type: marijuana Details: no tobacco/marijuana use for 24 hours. Housing: house Do you feel safe at home: Yes Do you feel safe in your relationship?: Yes Additional Social history: [facility]
[2025-02-18] MEDS: Tetanus & Diphtheria Tox,ADULT 0.5 ML VIAL IM (02:21)
[2025-02-18 03:14] VITALS: BP 123/66; PULSE 67; RESP 16; TEMP 36.4; O2SAT 96
== END 2025-02-18 03:20 | disposition home or self-care (01) ==
PROVIDERS: Emergency Provider Student in an Organized Health Care Education/Training Program
DX: S65.212A Laceration of superficial palmar arch of left hand, initial encounter (principal); S65.512A Laceration of blood vessel of right middle finger, initial encounter; W31.2XXA Contact with powered woodworking and forming machines, initial encounter; Z23 Encounter for immunization
CPT/HCPCS: 12002; 90471; 90714

== ENCOUNTER 2025-03-14 09:12 | Outpatient (CLI) | payer MEDICAID, SELFPAY ==
--- NOTE | 2025-03-14 08:45 | DI.RAD_ITS ---
Exam(s) XR ANKLE RT COMPLETE EXAM: XR ANKLE RT COMPLETE CLINICAL HISTORY: F/U FRACTURE. TECHNIQUE: 2D digital imaging was performed. Three images were obtained. AP, lateral and oblique vi ews were obtained. COMPARISON: CR XR ANKLE RT COMPLETE from 01/24/2025 FINDINGS: BONES: There are stable post operative changes present. No new fracture or dislocation. JOINTS: The joint spaces are well maintained. SOFT TISSUE: Normal. IMPRESSION: Stable postoperative changes. DATA REPOSITORY: RADIATION DOSE DELIVERED:
== END 2025-03-14 09:13 | disposition home or self-care (01) ==
LOC: DIORS 09:13
PROVIDERS: PCP Student in an Organized Health Care Education/Training Program; Referring Provider Student in an Organized Health Care Education/Training Program; Visit Provider Student in an Organized Health Care Education/Training Program
DX: S82.851D Displaced trimalleolar fracture of right lower leg, subsequent encounter for closed fracture with routine healing (principal); X58.XXXD Exposure to other specified factors, subsequent encounter
CPT/HCPCS: 99213; 73610